=== PATIENT | male | born 1950 | race Caucasian/White ===

== ENCOUNTER → 2018-12-30 | Emergency (ER) | payer MEDICARE ==
[2012-11-05 22:12] VITALS: BP 130/70
--- NOTE | 2018-12-30 19:47 | ERPHSYRPT ---
- History of Present Illness Time Seen by Provider: 12/30/18 19:46 Source: patient, family Allergies/Adverse Reactions: codeine Allergy (Mild, Verified 02/21/13 19:20) Itching hydromorphone HCl [From Dilaudid] Allergy (Mild, Verified 02/21/13 19:20) Nausea Home Medications: Celecoxib [Celebrex] 200 mg PO DAILY 02/21/13 [History] Clopidogrel Bisulfate 75 mg [PLAVIX 75 MG Tablet] 75 mg PO DAILY 02/21/13 [History] Esomeprazole Magnesium [Nexium] 40 mg PO BID 02/21/13 [History] Isosorbide Mononitrate 30 mg [Imdur 30 MG] 30 mg PO DAILY 02/21/13 [History ] Pravastatin Sodium [Pravachol] 20 mg PO DAILY 02/21/13 [History] Tamsulosin HCl 0.4 mg [Flomax 0.4 MG] 0.4 mg PO DAILY 02/21/13 [History] Warfarin Sodium 5 mg [Coumadin 5 MG] 5 mg PO DAILY 02/21/13 [History] Hx Tetanus, Diphtheria Vaccination/Date Given: Yes Hx Influenza Vaccination/Date Given: No Hx Pneumococcal Vaccination/Date Given: No - Past Medical History Pertinent Past Medical History: Yes Neurological History: No Pertinent History ENT History: No Pertinent History Cardiac History: Coronary Artery Disease, Myocardial Infarction ([place]) Respiratory History: No Pertinent History Endocrine Medical History: No Pertinent History Musculoskeletal History: No Pertinent History GI Medical History: No Pertinent History History: No Pertinent History Psycho-Social History: No Pertinent History Male Reproductive Disorders: No Pertinent History Other Medical History: FACTOR 5. BARRETTS ESOPHAGUS. URINARY RETENTION - Past Surgical History Past Surgical History: Yes Cardiac: Cardiac Catheterization, Cardiac Stent Gastrointestinal: Hernia Repair Musculoskeletal: Joint Replacement, Orthopedic Surgery Other Surgical History: L knee replacement 2010 - Social History Smoking Status: Never smoker Exposure to second hand smoke: No Drug Use: none Patient Lives Alone: No - Departure Referrals: DARYL GILES MD [Primary Care Provider] -
== END ==
LOC: ED 19:44
DX: Z53.9 Procedure and treatment not carried out, unspecified reason (principal)
CPT/HCPCS: 99281; G0463

== ENCOUNTER 2021-03-24 19:42 | Emergency (ER) | payer MEDICARE ==
[2012-11-05 22:12] VITALS: BP 130/70
--- NOTE | 2021-03-24 20:15 | ERPHSYRPT ---
- History of Present Illness Time Seen by Provider: 03/24/21 20:10 Source: patient Exam Limitations: no limitations Patient Subjective Stated Complaint: "I'm congested and feel terrible." Triage Nursing Assessment: patient reported that he awoke this morning 03/24/20 with sinus congestion, myalgias, and malaise. he reported that his tested positive for COVID 4 days ago and had similar symptoms. He denied headache, dizziness, chest pain, shortness of breath, N/V/D. He denied that he has been drinking water throghout the day. pupils 3mm bilateral. neck supple without JVD. Symmetrical chest expansion. heart tones S1/S2 RRR without extra sounds. Lungs vesicular with adequate airflow. Abdomen with healed surgical scar from a grafting procedure in the past. Bowel sounds present in all quadrants. Abdomen non-distended, non-surgical, and without peritoneal signs. Peripheral pulses +3 bilateral. Gait steady without complications. Timing/Duration: today Cough Quality/Degree: mild Possible Cause: no prior episodes ( has covid, he has been immunized) Modifying Factors: Improves With: activity Associated Symptoms: fever, cough, muscle aches, nasal congestion Allergies/Adverse Reactions: codeine Allergy (Mild, Verified 03/24/21 19:52) Itching hydromorphone HCl [From Dilaudid] Allergy (Mild, Verified 03/24/21 19:52) Nausea Home Medications: Clopidogrel Bisulfate 75 mg [PLAVIX 75 MG Tablet] 75 mg PO DAILY 02/21/13 [History] Esomeprazole Magnesium [Nexium] 40 mg PO BID 02/21/13 [History] Isosorbide Mononitrate 30 mg [Imdur 30 MG] 30 mg PO DAILY 02/21/13 [History] Pravastatin Sodium [Pravachol] 20 mg PO DAILY 02/21/13 [History] Tamsulosin HCl 0.4 mg [Flomax 0.4 MG] 0.4 mg PO DAILY 02/21/13 [History] Warfarin Sodium 5 mg [Coumadin 5 MG] 5 mg PO DAILY 02/21/13 [History] Hx Tetanus, Diphtheria Vaccination/Date Given: Yes Hx Influenza Vaccination/Date Given: Yes Hx Pneumococcal Vaccination/Date Given: No Travel Risk - International Travel Have you traveled outside of the country in past 3 weeks: No - Coronavirus Screening Are you exhibiting any of the following symptoms?: Yes Symptoms: Cough: New Onset, Headaches/Body Aches/Fatigue - Vaccine Status Have you recieved a Covid-19 vaccination: Yes [employer]: [employer] - Review of Systems Constitutional: Fever, Fatigue, Lethargy, Malaise Eyes: No Symptoms Ears, Nose, & Throat: Nose Congestion Respiratory: Cough Cardiac: No Symptoms Abdominal/Gastrointestinal: Nausea Genitourinary Symptoms: No Symptoms Musculoskeletal: No Symptoms Skin: No Symptoms Neurological: No Symptoms Psychological: No Symptoms Endocrine: No Symptoms Hematologic/Lymphatic: No Symptoms Immunological/Allergic: No Symptoms All Other Systems: Reviewed and Negative - Past Medical History Pertinent Past Medical History: Yes Neurological History: No Pertinent History ENT History: No Pertinent History Cardiac History: Coronary Artery Disease, Myocardial Infarction ([place]) Respiratory History: No Pertinent History Endocrine Medical History: No Pertinent History Musculoskeletal History: No Pertinent History GI Medical History: No Pertinent History History: No Pertinent History Psycho-Social History: No Pertinent History Male Reproductive Disorders: No Pertinent History Other Medical History: FACTOR 5. BARRETTS ESOPHAGUS. URINARY RETENTION - Past Surgical History Past Surgical History: Yes Cardiac: Cardiac Catheterization, Cardiac Stent Gastrointestinal: Hernia Repair Musculoskeletal: Joint Replacement, Orthopedic Surgery Other Surgical History: L knee replacement 2010 - Social History Smoking Status: Never smoker Exposure to second hand smoke: No Drug Use: none Patient Lives Alone: No - Nursing Vital Signs Nursing Vital Signs: Initial Vital Signs Temperature 98.0 F 03/24/21 19:43 Pulse Rate 81 03/24/21 19:43 Respiratory Rate 18 03/24/21 19:43 Blood Pressure 125/68 03/24/21 19:43 O2 Sat by Pulse Oximetry 97 03/24/21 19:43 Pain Scale Pain Intensity 5 - Physical Exam General Appearance: mild distress Eye Exam: PERRL/EOMI Ears, Nose, Throat Exam: normal ENT inspection Neck Exam: normal inspection, non-tender Respiratory Exam: normal breath sounds, chest tenderness Cardiovascular Exam: regular rate/rhythm, normal heart sounds Gastrointestinal/Abdomen Exam: soft, normal bowel sounds Rectal Exam: deferred Back Exam: normal inspection Extremity Exam: normal inspection, normal range of motion Neurologic Exam: alert, oriented x 3, cooperative Skin Exam: normal color, warm, dry SpO2 Interpretation: normal SpO2: 97 O2 Delivery: Room Air - Course Nursing assessment & vital signs reviewed: Yes Ordered Tests: Active Orders 24 hr Category Date Time Status IV Insertion STAT Care 03/24/21 20:20 Completed CBC W DIFF Stat Lab 03/24/21 20:45 Completed CMP Stat Lab 03/24/21 20:45 Completed Medication Summary Discontinued Medications Generic Name Dose Route Start Last Admin Trade Name Jose PRN Reason Stop Dose Admin Lactated Ringer's 1,000 mls @ 999 mls/hr 03/24/21 20:17 03/24/21 21:28 Lactated Ringers IV 03/24/21 21:17 Infused .Q1H1M ONE Infusion Lactated Ringer's Confirm 03/24/21 20:27 Lactated Ringers Administered 03/24/21 20:28 Dose 1,000 mls @ ud IV .STK-MED ONE Ondansetron HCl 4 mg 03/24/21 20:17 03/24/21 20:27 Ondansetron Hcl 4 Mg/2 Ml Vial IV 03/24/21 20:18 4 mg STAT ONE Administration Ondansetron HCl Confirm 03/24/21 20:26 Ondansetron Hcl 4 Mg/2 Ml Vial Administered 03/24/21 20:27 Dose 4 mg .ROUTE .STK-MED ONE Lab/Rad Data: Laboratory Result Diagrams 03/24/21 20:45 03/24/21 20:45 Laboratory Results 03/24/21 03/24/21 Range/Units 20:45 20:45 WBC 11.8 H (4.0-10.5) K/mm3 RBC 3.65 L (4.1-5.6) M/mm3 Hgb 11.0 L (12.5-18.0) gm/dl Hct 34.6 L (42-50) % MCV 94.8 (78-100) fl MCH 30.1 (26-32) pg MCHC 31.8 L (32-36) g/dl RDW 15.5 H (11.5-14.0) % Plt Count 202 (150-450) K/mm3 MPV 9.3 (7.5-11.0) fl Gran % 71.7 H (36.0-66.0) % Eos # (Auto) 0.07 (0-0.5) Absolute Lymphs (auto) 1.71 (1.0-4.6) Absolute Monos (auto) 1.54 H (0.0-1.3) Lymphocytes % 14.5 L (24.0-44.0) % Monocytes % 13.0 H (0.0-12.0) % Eosinophils % 0.6 (0.00-5.0) % Basophils % 0.2 (0.0-0.4) % Absolute Granulocytes 8.47 H (1.4-6.9) Basophils # 0.02 (0-0.4) Sodium 134 L (137-145) mmol/L Potassium 4.0 (3.5-5.1) mmol/L Chloride 98 (98-107) mmol/L Carbon Dioxide 31 H (22-30) mmol/L Anion Gap 8.8 (5-15) MEQ/L BUN 16 (9-20) mg/dL Creatinine 0.84 (0.66-1.25) mg/dL Estimated GFR > 60.0 ML/MIN Glucose 108 H (74-106) mg/dL Calcium 8.2 L (8.4-10.2) mg/dL Total Bilirubin 0.80 (0.2-1.3) mg/dL AST 19 (17-59) U/L ALT 15 (0-50) U/L Alkaline Phosphatase 66 (38-126) U/L Serum Total Protein 6.3 (6.3-8.2) g/dL Albumin 3.5 (3.5-5.0) g/dL Slides for Path Review YES - Progress Progress: improved Air Movement: good Progress Note: 03/25/21 02:09 He likely has COVID, test sent out. Mild volume depletion. Rx zofran. Blood Culture(s) Obtained: No Antibiotics given: No Counseled pt/family regarding: lab results, diagnosis - Departure Departure Disposition: Home Clinical Impression: Nausea, Volume depletion, Viral syndrome Condition: Stable Critical Care Time: No Referrals: YOSEF WILDE [Primary Care Provider] - Follow up/PCP as directed Instructions: Nausea and Vomiting, Adult (DC) Additional Instructions: Your COVID test is pending, you should assume that you have it. Follow CDC guidelines. OTC med as helpful. Recheck as needed. Prescriptions: Ondansetron [Ondansetron Odt ] 4 mg PO Q6H PRN #30 tablet PRN Reason: Nausea
[2021-03-24] MEDS ORDERED: Zofran 4 MG/2 ML VIAL IV ONE (20:17)
[2021-03-24] MEDS ORDERED: Lactated Ringers 1,000 ML IV ONE ×2 (20:17→20:27)
[2021-03-24] MEDS ORDERED: Zofran 4 MG/2 ML VIAL ONE (20:26)
[2021-03-24 20:55] LABS: Absolute Neutrophil Ct (ANC) 8.47 (1.4-6.9); Basophil (Absolute #) 0.02 (0-0.4); Eosinophil % 0.6 % (0.00-5.0); Eosinophil (Absolute #) 0.07 (0-0.5); Hematocrit 34.6 % (42-50); Lymphocyte (Absolute #) 1.71 (1.0-4.6); Lymphocytes % 14.5 % (24.0-44.0); Mean Cell Volume 94.8 fl (78-100); Mean Corpuscular Hemoglobin 30.1 pg (26-32); Mean Corpuscular Hgb Concent. 31.8 g/dl (32-36); Mean Platelet Volume 9.3 fl (7.5-11.0); Monocyte (Absolute #) 1.54 (0.0-1.3); Neutrophil % 71.7 % (36.0-66.0); Platelet Count 202 K/mm3 (150-450); Red Blood Count 3.65 M/mm3 (4.1-5.6); Red Cell Distribution Width 15.5 % (11.5-14.0); White Blood Count 11.8 K/mm3 (4.0-10.5)
[2021-03-24 21:10] LABS: ALBUMIN 3.5 g/dL (3.5-5.0); ALKALINE PHOSPHATASE 66 U/L (38-126); ANION GAP 8.8 MEQ/L (5-15); BLOOD UREA NITROGEN 16 mg/dL (9-20); CHLORIDE 98 mmol/L (98-107); Calcium 8.2 mg/dL (8.4-10.2); Carbon Dioxide 31 mmol/L (22-30); Creatinine 1 0.84 mg/dL (0.66-1.25); EST GLOMERULAR FILTRATION RATE > 60.0 ML/MIN; Glucose 108 mg/dL (74-106); SGOT/AST 19 U/L (17-59); SGPT/ALT 15 U/L (0-50); SODIUM 134 mmol/L (137-145); Total Protein 6.3 g/dL (6.3-8.2)
[2021-03-24 22:47] VITALS: BP 139/76; PULSE 80
[2021-03-24 22:59] LABS: Slide Review 1 YES
[2021-03-25 02:06] VITALS: O2SAT 97
== END 2021-03-24 22:51 | disposition home or self-care (01) ==
LOC: ED 19:42
DX: B34.9 Viral infection, unspecified (principal); R11.0 Nausea; E86.0 Dehydration; R09.81 Nasal congestion; M79.10 Myalgia, unspecified site; R53.81 Other malaise; Z20.822 Contact with and (suspected) exposure to COVID-19; Z79.01 Long term (current) use of anticoagulants; I25.10 Atherosclerotic heart disease of native coronary artery without angina pectoris; D68.51 Activated protein C resistance; Z79.899 Other long term (current) drug therapy
CPT/HCPCS: 36000; 36415; 80053; 85025; 96374; 99284; U0003; J2405

== ENCOUNTER 2021-03-26 11:50 | Observation (INO) | payer MEDICARE ==
[2021-03-26] MEDS ORDERED: Sodium Chloride 0.9% 1000 ML 1,000 ML IV STA (12:25)
[2021-03-26] MEDS ORDERED: Sodium Chloride 0.9% 1000 ML 1,000 ML ONE (12:31)
--- NOTE | 2021-03-26 12:36 | ERPHSYRPT ---
- History of Present Illness Time Seen by Provider: 03/26/21 12:00 Source: patient Exam Limitations: no limitations Patient Subjective Stated Complaint: Chest pain Triage Nursing Assessment: Patient ambulated back to ED and transferred self to bed. Patient A+O X3. Patient's skin pink, warm and dry. Patient complains of chest pain that started yesterday evening. Patient states pain is 8/10. Patient also has fever, cough, SOB, diarrhea, bodyaches, fatigue and headaches. Patient was seen in ED on Saturday and was tested outpatient for covid with pending results. Patient's is COVID Postitive. Lungs clear A/P willam. Physician History: Patient is a 70-year-old white male who presents with a complaint of chest pain which he feels is due to coughing. He has been sick for 2 days with a cough producing a small amount of phlegm he also has had some headache fatigue diarrhea fever chest congestion and shortness of breath. He has a who tested positive for COVID COVID 4 days ago the patient was vaccinated with J&J vaccine in March of last year. Patient was seen 2 nights ago in the yard clinically diagnosed with the flu COVID was done and is pending. Timing/Duration: day(s) (2) Cough Quality/Degree: productive cough Possible Cause: illness exposure ( is positive for COVID) Associated Symptoms: fever, chills, chest pain/soreness, cough, headache, nasal congestion, shortness of breath Allergies/Adverse Reactions: codeine Allergy (Mild, Verified 03/26/21 11:59) Itching hydromorphone HCl [From Dilaudid] Allergy (Mild, Verified 03/26/21 11:59) Nausea Home Medications: Clopidogrel Bisulfate 75 mg [PLAVIX 75 MG Tablet] 75 mg PO DAILY 02/21/13 [History] Esomeprazole Magnesium [Nexium] 40 mg PO BID 02/21/13 [History] Isosorbide Mononitrate 30 mg [Imdur 30 MG] 30 mg PO DAILY 02/21/13 [History] Pravastatin Sodium [Pravachol] 20 mg PO DAILY 02/21/13 [History] Tamsulosin HCl 0.4 mg [Flomax 0.4 MG] 0.4 mg PO DAILY 02/21/13 [History] Warfarin Sodium 5 mg [Coumadin 5 MG] 5 mg PO DAILY 02/21/13 [History] Hx Tetanus, Diphtheria Vaccination/Date Given: Yes Hx Influenza Vaccination/Date Given: Yes Hx Pneumococcal Vaccination/Date Given: No Immunizations Up to Date: Yes Travel Risk - International Travel Have you traveled outside of the country in past 3 weeks: No - Coronavirus Screening Are you exhibiting any of the following symptoms?: Yes Symptoms: Fever, Cough: New Onset, Shortness of Breath, Loss of Taste or Smell Close contact with a COVID-19 positive Pt in past 14-21 Days: Yes - Vaccine Status Have you recieved a Covid-19 vaccination: Yes [employer]: [employer] - Review of Systems Constitutional: Fever, Chills, Fatigue Eyes: No Symptoms Ears, Nose, & Throat: Nose Congestion, Throat Pain Respiratory: Cough, Dyspnea, Dyspnea on Exertion (LOCO) Cardiac: Chest Pain, No Edema, No Syncope Abdominal/Gastrointestinal: Diarrhea, No Abdominal Pain, No Nausea, No Vomiting Genitourinary Symptoms: No Dysuria Musculoskeletal: No Back Pain, No Neck Pain Skin: No Rash Neurological: Headache, No Dizziness, No Focal Weakness, No Sensory Changes Psychological: No Symptoms Endocrine: No Symptoms All Other Systems: Reviewed and Negative - Past Medical History Pertinent Past Medical History: Yes Neurological History: No Pertinent History ENT History: No Pertinent History Cardiac History: Coronary Artery Disease, Myocardial Infarction ([place]) Respiratory History: No Pertinent History Endocrine Medical History: No Pertinent History Musculoskeletal History: No Pertinent History GI Medical History: No Pertinent History History: No Pertinent History Psycho-Social History: No Pertinent History Male Reproductive Disorders: No Pertinent History Other Medical History: FACTOR 5. BARRETTS ESOPHAGUS. URINARY RETENTION - Past Surgical History Past Surgical History: Yes Cardiac: Cardiac Catheterization, Cardiac Stent Gastrointestinal: Hernia Repair Musculoskeletal: Joint Replacement, Orthopedic Surgery Other Surgical History: L knee replacement 2010 - Social History Smoking Status: Never smoker Exposure to second hand smoke: No Drug Use: none Patient Lives Alone: No - Nursing Vital Signs Nursing Vital Signs: Initial Vital Signs Temperature 99.0 F 03/26/21 12:00 Pulse Rate 86 03/26/21 12:00 Respiratory Rate 18 03/26/21 12:00 Blood Pressure 138/68 03/26/21 12:00 O2 Sat by Pulse Oximetry 96 03/26/21 12:00 Pain Scale Pain Intensity 6 - Physical Exam General Appearance: mild distress, alert Eye Exam: PERRL/EOMI, eyes nml inspection Ears, Nose, Throat Exam: normal ENT inspection, TMs normal, pharynx normal, moist mucous membranes Neck Exam: normal inspection, non-tender, supple, full range of motion Respiratory Exam: respiratory distress, crackles/rales Cardiovascular Exam: regular rate/rhythm, normal heart sounds Gastrointestinal/Abdomen Exam: soft, No tenderness Back Exam: normal inspection, No CVA tenderness, No vertebral tenderness Extremity Exam: normal inspection, normal range of motion Neurologic Exam: alert, oriented x 3, cooperative, normal mood/affect, sensation nml, No motor deficits Skin Exam: normal color, warm, dry, No rash Lymphatic Exam: No adenopathy SpO2: 96 - Course Nursing assessment & vital signs reviewed: Yes EKG Interpreted by Me: RATE (86), Sinus Rhythm, NORMAL AXIS, NORMAL INTERVALS, Non-specific ST Changes - Radiology Exams Chest X-ray Interpretation: Interpreted by me, Other (Right upper lobe opacities) Ordered Tests: Active Orders 24 hr Category Date Time Status EKG-ER Only STAT Care 03/26/21 12:25 Active IV Insertion STAT Care 03/26/21 12:25 Active CHEST 1 VIEW (PORTABLE) Stat Exams 03/26/21 12:26 Taken BLOOD CULTURE Stat Lab 03/26/21 12:45 Received CBC W DIFF Stat Lab 03/26/21 12:36 Completed CMP Stat Lab 03/26/21 12:36 Completed D-DIMER QUANTITATIVE Stat Lab 03/26/21 12:36 Completed LIPASE Stat Lab 03/26/21 12:36 Completed Lactic Acid Stat Lab 03/26/21 12:35 Completed MAGNESIUM Stat Lab 03/26/21 12:36 Completed NT PRO BNP Stat Lab 03/26/21 12:36 Completed PROTIME WITH INR Stat Lab 03/26/21 12:36 Completed TROPONIN Q3H Lab 03/26/21 12:36 Completed TROPONIN Q3H Lab 03/26/21 15:30 Ordered TROPONIN Q3H Lab 03/26/21 18:30 Ordered TROPONIN Q3H Lab 03/26/21 21:30 Ordered TROPONIN Q3H Lab 03/27/21 00:30 Ordered UA W/RFX UR CULTURE Stat Lab 03/26/21 12:26 Ordered Medication Summary Discontinued Medications Generic Name Dose Route Start Last Admin Trade Name Freq PRN Reason Stop Dose Admin Sodium Chloride 1,000 mls @ 999 mls/hr 03/26/21 12:25 03/26/21 14:06 Sodium Chloride 0.9% 1000 Ml IV 03/26/21 13:25 Infused .Q1H1M STA Infusion Sodium Chloride Confirm 03/26/21 12:31 Sodium Chloride 0.9% 1000 Ml Administered 03/26/21 12:32 Dose 1,000 mls @ .ROUTE .[facility]-MED ONE Lab/Rad Data: Laboratory Result Diagrams 03/26/21 12:36 03/26/21 12:36 Laboratory Results 03/26/21 03/26/21 03/26/21 Range/Units 12:36 12:36 12:36 WBC (4.0-10.5) K/mm3 RBC (4.1-5.6) M/mm3 Hgb (12.5-18.0) gm/dl Hct (42-50) % MCV (78-100) fl MCH (26-32) pg MCHC (32-36) g/dl RDW (11.5-14.0) % Plt Count (150-450) K/mm3 MPV (7.5-11.0) fl Gran % (36.0-66.0) % Eos # (Auto) (0-0.5) Absolute Lymphs (auto) (1.0-4.6) Absolute Monos (auto) (0.0-1.3) Lymphocytes % (24.0-44.0) % Monocytes % (0.0-12.0) % Eosinophils % (0.00-5.0) % Basophils % (0.0-0.4) % Absolute Granulocytes (1.4-6.9) Basophils # (0-0.4) PT 27.7 H (9.4-12.5) SECONDS INR 2.35 (0.8-3.0) D-Dimer 332 (215-500) ng/mL Sodium 135 L (137-145) mmol/L Potassium 3.7 (3.5-5.1) mmol/L Chloride 101 (98-107) mmol/L Carbon Dioxide 26 (22-30) mmol/L Anion Gap 11.7 (5-15) MEQ/L BUN 19 (9-20) mg/dL Creatinine 0.76 (0.66-1.25) mg/dL Estimated GFR > 60.0 ML/MIN Glucose 167 H (74-106) mg/dL Lactic Acid (0.4-2.0) Calcium 8.7 (8.4-10.2) mg/dL Magnesium 1.7 (1.6-2.3) mg/dL Total Bilirubin 0.70 (0.2-1.3) mg/dL AST 21 (17-59) U/L ALT 17 (0-50) U/L Alkaline Phosphatase 52 (38-126) U/L Troponin I < 0.012 (0.000-0.034) ng/mL NT-Pro-B Natriuret Pep 531 (0-900) pg/mL Serum Total Protein 6.1 L (6.3-8.2) g/dL Albumin 3.3 L (3.5-5.0) g/dL Lipase 19 L (23-300) U/L Influenza Type A Ag (NEGATIVE) Influenza Type B Ag (NEGATIVE) RSV (PCR) (Negative) SARS-CoV-2 (PCR) (NEGATIVE) 03/26/21 03/26/21 03/26/21 Range/Units 12:36 12:35 12:34 WBC 18.0 H (4.0-10.5) K/mm3 RBC 3.58 L (4.1-5.6) M/mm3 Hgb 10.9 L (12.5-18.0) gm/dl Hct 33.8 L (42-50) % MCV 94.4 (78-100) fl MCH 30.4 (26-32) pg MCHC 32.2 (32-36) g/dl RDW 15.5 H (11.5-14.0) % Plt Count 209 (150-450) K/mm3 MPV 9.9 (7.5-11.0) fl Gran % 86.4 H (36.0-66.0) % Eos # (Auto) 0.03 (0-0.5) Absolute Lymphs (auto) 1.17 (1.0-4.6) Absolute Monos (auto) 1.22 (0.0-1.3) Lymphocytes % 6.5 L (24.0-44.0) % Monocytes % 6.8 (0.0-12.0) % Eosinophils % 0.2 (0.00-5.0) % Basophils % 0.1 (0.0-0.4) % Absolute Granulocytes 15.53 H (1.4-6.9) Basophils # 0.01 (0-0.4) PT (9.4-12.5) SECONDS INR (0.8-3.0) D-Dimer (215-500) ng/mL Sodium (137-145) mmol/L Potassium (3.5-5.1) mmol/L Chloride (98-107) mmol/L Carbon Dioxide (22-30) mmol/L Anion Gap (5-15) MEQ/L BUN (9-20) mg/dL Creatinine (0.66-1.25) mg/dL Estimated GFR ML/MIN Glucose (74-106) mg/dL Lactic Acid 2.6 H (0.4-2.0) Calcium (8.4-10.2) mg/dL Magnesium (1.6-2.3) mg/dL Total Bilirubin (0.2-1.3) mg/dL AST (17-59) U/L ALT (0-50) U/L Alkaline Phosphatase (38-126) U/L Troponin I (0.000-0.034) ng/mL NT-Pro-B Natriuret Pep (0-900) pg/mL Serum Total Protein (6.3-8.2) g/dL Albumin (3.5-5.0) g/dL Lipase (23-300) U/L Influenza Type A Ag NEGATIVE (NEGATIVE) Influenza Type B Ag NEGATIVE (NEGATIVE) RSV (PCR) NEGATIVE (Negative) SARS-CoV-2 (PCR) POSITIVE A (NEGATIVE) - Progress Progress: unchanged Air Movement: fair Blood Culture(s) Obtained: Yes Antibiotics given: Yes Will see patient in: hospital (observation) - Departure Departure Disposition: Observation Clinical Impression: COVID-19, Right upper lobe pneumonia Condition: Fair Critical Care Time: No Referrals: YOSEF WILDE [Primary Care Provider] - Follow up/PCP as directed
[2021-03-26 12:57] LABS: Absolute Neutrophil Ct (ANC) 15.53 (1.4-6.9); Basophil (Absolute #) 0.01 (0-0.4); Eosinophil % 0.2 % (0.00-5.0); Eosinophil (Absolute #) 0.03 (0-0.5); Hematocrit 33.8 % (42-50); Hemoglobin 10.9 gm/dl (12.5-18.0); Lymphocyte (Absolute #) 1.17 (1.0-4.6); Lymphocytes % 6.5 % (24.0-44.0); Mean Cell Volume 94.4 fl (78-100); Mean Corpuscular Hemoglobin 30.4 pg (26-32); Mean Corpuscular Hgb Concent. 32.2 g/dl (32-36); Mean Platelet Volume 9.9 fl (7.5-11.0); Monocyte (Absolute #) 1.22 (0.0-1.3); Monocytes % 6.8 % (0.0-12.0); Neutrophil % 86.4 % (36.0-66.0); Platelet Count 209 K/mm3 (150-450); Red Blood Count 3.58 M/mm3 (4.1-5.6); Red Cell Distribution Width 15.5 % (11.5-14.0)
[2021-03-26 13:10] LABS: INR 2.35 (0.8-3.0); PROTIME 27.7 SECONDS (9.4-12.5)
[2021-03-26 13:17] LABS: INFLUENZA A NEGATIVE (NEGATIVE); INFLUENZA B NEGATIVE (NEGATIVE); RESPIRATORY SYNCTIAL VIRUS NEGATIVE (Negative)
[2021-03-26 13:22] LABS: SARS-CoV-2 Xpert Express POSITIVE (NEGATIVE)
[2021-03-26 13:23] LABS: ALBUMIN 3.3 g/dL (3.5-5.0); ALKALINE PHOSPHATASE 52 U/L (38-126); ANION GAP 11.7 MEQ/L (5-15); BLOOD UREA NITROGEN 19 mg/dL (9-20); CHLORIDE 101 mmol/L (98-107); Calcium 8.7 mg/dL (8.4-10.2); Carbon Dioxide 26 mmol/L (22-30); Creatinine 1 0.76 mg/dL (0.66-1.25); EST GLOMERULAR FILTRATION RATE > 60.0 ML/MIN; Glucose 167 mg/dL (74-106); LIPASE 19 U/L (23-300); MAGNESIUM 1.7 mg/dL (1.6-2.3); NT PRO BNP 531 pg/mL (0-900); Potassium 3.7 mmol/L (3.5-5.1); SGOT/AST 21 U/L (17-59); SGPT/ALT 17 U/L (0-50); SODIUM 135 mmol/L (137-145); Total Protein 6.1 g/dL (6.3-8.2)
[2021-03-26] MEDS: Sodium Chloride 0.9% 1000 ML 1,000 ML IV SCH (14:44)
[2021-03-26] MEDS ORDERED: FEVERALL 650 MG PR PRN (15:15)
[2021-03-26] MEDS ORDERED: Ativan 1 MG PO PRN (15:15)
[2021-03-26] MEDS ORDERED: Ativan 2 MG/1 ML VIAL IV PRN (15:15)
[2021-03-26] MEDS ORDERED: TYLENOL EXTRA STRENGTH 500 MG PO PRN (15:15)
[2021-03-26] MEDS ORDERED: Zofran 4 MG/2 ML VIAL IV PRN (15:15)
[2021-03-26] MEDS ORDERED: HYDROCODONE-CHLORPHEN ER SUSP PO PRN (15:15)
[2021-03-26] MEDS ORDERED: DECADRON 10MG INJ. IV SCH (16:00)
[2021-03-26] MEDS ORDERED: OLUMIANT PO SCH (16:00)
[2021-03-26] MEDS ORDERED: REMDESIVIR 200 MG in Sodium Chloride 0.9% 250 ML 250 ML IV ONE (16:00)
[2021-03-26] MEDS ORDERED: ZOFRAN ODT 4 MG PO PRN (16:43)
[2021-03-26] MEDS: MORPHINE SULFATE 4 MG INJ IV PRN ×2 (17:07→23:37)
[2021-03-26] MEDS: ROCEPHIN 1 Gm-D5w 50 ml Bag** 1 G/50 ML IVPB IV SCH (17:11)
[2021-03-26] MEDS: Coumadin 1 MG*** 1 MG, Coumadin 3 MG*** 3 MG PO SCH ×2 (17:11)
[2021-03-26] MEDS ORDERED: MEDICATION INTERVENTION MC SCH ×2 (17:15)
[2021-03-26] MEDS: ZENPEP DR 5,000 UNIT CAPSULE PO SCH (17:28)
[2021-03-26] MEDS ORDERED: Coumadin 5 MG PO SCH ×2 (18:00→22:00)
[2021-03-26 18:35] LABS: Appearance CLEAR (CLEAR); Bilirubin NEGATIVE (NEGATIVE); Blood SMALL Ery/ul (0-5); Glucose NEGATIVE (NEGATIVE); Ketones NEGATIVE (NEGATIVE); Leukocyte Esterase NEGATIVE (NEGATIVE); Nitrite NEGATIVE (NEGATIVE); Protein,Urine Dip NEGATIVE (Negative); Urobilinogen NEGATIVE mg/dL (0-1)
--- NOTE | 2021-03-26 19:21 | XRAY ---
Indication: Cough, short of breath, congestion, and chest pain. Comparison: January 18, 2013. Portable chest remains clear again with a few incidental tiny calcified granulomas. Heart not enlarged again with tortuous descending aorta. Bony thorax intact again with mild osteopenia and degenerative changes. Impression: Continued nonacute chest with chronic features.
[2021-03-26] MEDS: Flomax 0.4 MG PO SCH (21:29)
[2021-03-26] MEDS: PLAVIX 75 MG Tablet PO SCH (21:29)
[2021-03-27 03:04] LABS: Hematocrit 32.3 % (42-50); Mean Cell Volume 95.8 fl (78-100); Mean Corpuscular Hemoglobin 29.7 pg (26-32); Mean Platelet Volume 9.7 fl (7.5-11.0); Platelet Count 193 K/mm3 (150-450); Red Blood Count 3.37 M/mm3 (4.1-5.6); Red Cell Distribution Width 15.9 % (11.5-14.0); White Blood Count 16.7 K/mm3 (4.0-10.5)
[2021-03-27 03:30] LABS: ALBUMIN 3.2 g/dL (3.5-5.0); ALKALINE PHOSPHATASE 61 U/L (38-126); ANION GAP 7.8 MEQ/L (5-15); BLOOD UREA NITROGEN 14 mg/dL (9-20); CHLORIDE 102 mmol/L (98-107); Calcium 8.2 mg/dL (8.4-10.2); Carbon Dioxide 29 mmol/L (22-30); EST GLOMERULAR FILTRATION RATE > 60.0 ML/MIN; Glucose 95 mg/dL (74-106); NT PRO BNP 568 pg/mL (0-900); Potassium 3.9 mmol/L (3.5-5.1); SGOT/AST 19 U/L (17-59); SGPT/ALT 14 U/L (0-50); SODIUM 135 mmol/L (137-145); Total Protein 6.1 g/dL (6.3-8.2)
[2021-03-27] MEDS ORDERED: NON-FORMULARY ITEM (Lipase/Protease/Amylase [Creon Dr 36,000 Unit Capsule] 1 EACH Capsule. PO SCH (07:30)
[2021-03-27] MEDS: ZENPEP DR 5,000 UNIT CAPSULE PO SCH ×3 (07:54→16:50)
[2021-03-27] MEDS: MORPHINE SULFATE 4 MG INJ IV PRN (08:05)
--- NOTE | 2021-03-27 08:38 | XRAY ---
Indication: Cough and short of breath. Covid 19 pneumonia. Comparison: One day earlier. Portable chest now demonstrates subtle right mid peripheral patchy airspace disease and tiny right effusion. Remaining heart and left lung unremarkable again with incidental tiny calcified granulomas and tortuous descending aorta.
[2021-03-27] MEDS: Sodium Chloride 0.9% 1000 ML 1,000 ML IV SCH ×2 (08:53→21:38)
[2021-03-27] MEDS: Protonix 40MG Tablet PO SCH (09:20)
[2021-03-27] MEDS: ECOTRIN 81 MG PO SCH (09:20)
[2021-03-27] MEDS: Reglan 10 MG PO SCH (09:20)
[2021-03-27] MEDS: MAG-OX 400 PO SCH (09:21)
[2021-03-27] MEDS: ROCEPHIN 1 Gm-D5w 50 ml Bag** 1 G/50 ML IVPB IV SCH (09:24)
[2021-03-27] MEDS ORDERED: NON-FORMULARY ITEM (Fludrocortisone Acetate [Fludrocortisone Acetate] 0.1 MG Tablet) PO SCH (10:00)
[2021-03-27] MEDS ORDERED: NON-FORMULARY ITEM (Potassium Gluconate [Potassium] 99 MG Tablet) PO SCH (10:00)
[2021-03-27] MEDS ORDERED: NON-FORMULARY ITEM (Magnesium [Magnesium] 200 MG Tablet) PO SCH (10:00)
[2021-03-27] MEDS ORDERED: NON-FORMULARY ITEM (Metoclopramide Hcl [Metoclopramide Hcl] 5 MG Tablet) PO SCH (10:00)
--- NOTE | 2021-03-27 15:01 | HP ---
CHIEF COMPLAINT: Chest pain. HISTORY OF PRESENT ILLNESS: The patient is a 70-year-old white male whose has COVID and at home. This is the second time she has had COVID. He started feeling real bad chest pain for 24 hours pain 10/18. He has no history of coronary artery disease. He states it is more of a sharpness, worse with inspiration, worse with walking. He has fever, cough, aching all over, diarrhea. Headaches. He was actually seen in the emergency room on Saturday and was tested for COVID and pending results. The patient was vaccinated with Novacem and Novacem Vaccine in March 2020. He has not had a second vaccine apparently. TRAVEL RISK: No international travel. CORONAVIRUS SCREENING: Vaccine status one Lennox and Lennox. MEDICATIONS: Plavix 75 q.d., Nexium 40 b.i.d., Imdur 30 q.d., Pravachol 20 q.d., tamsulosin 0.4 mg q.d., Coumadin 5 mg q.d. ALLERGIES: CODEINE. DILAUDID (ITCHING). PAST MEDICAL HISTORY: Myocardial infarction. Factor V deficiency. He also has Samson's esophagus. PAST SURGICAL HISTORY: Cardiac stent in the past. Hernia repair. Joint replacement of the left knee. REVIEW OF SYSTEMS: CONSTITUTIONAL: Fever, chills. HEENT: Eyes no problems. Stopped up head, sore throat. RESPIRATORY: Shortness of breath, coughing. CVS: Chest aches. He states he has some factor V deficiency which relates to his myocardial infarction several years ago and being treated for coronary artery disease. ABDOMEN: Diarrhea. He has benign tumor of the pancreas which has left him with unresolved pain and weight loss. At one point he was down to like 122 pounds and he is at least 5'9". IU put a pain pump on him. He resisted doing that initially. A morphine-type pump and said that tremendously improved his life. He is also being fed with an NG tube which came out a few days ago which he did not want have put back in at this time. : No problems. NEUROLOGIC: Headaches since the beginning of this virus. PSYCHOLOGICAL: No problems. He is very orientated, not depressed. His is a very level headed, pleasant person. We treated her earlier this year. SOCIAL HISTORY: Nonsmoker. Drug use: None. He lives with his . PHYSICAL EXAMINATION: VITAL SIGNS: Temperature 100F, pulse 90, respirations 20, blood pressure 140/70. O2 saturation on room air is 96%. Pain intensity 6. HEENT: Pupils equal and reactive to light. NECK: Supple without adenopathy. CHEST: Clear. CVS: No murmurs or gallops. ABDOMEN: Soft. No tenderness or organomegaly. EXTREMITIES: Scars over the knees. Normal. PSYCHOLOGIC: The patient is very pleasant, intelligent, excitable person. He give a good history. LAB DATA AND TESTS: Chest x-ray showed possibly some right upper lobe opacities. White count was 18. Electrolytes were normal except for sodium 135. His prothrombin time is elevated appropriately to 27.7. He is on Coumadin. His INR was 2.35. D-dimer 332. BNP normal at 530. Lipase was 19. Influenza negative. Respiratory syncytial virus negative. SARS-CoV-2 positive. Hemoglobin 10.9. Lactic acid 2.6. IMPRESSION: The patient has:1) COVID. 2) Benign pancreatic tumor which is causing weight loss and pain. 3) Coronary artery disease which is stable. 4) Chest pain felt secondary to COVID. PLAN: The patient will be treated with our usual COVID medications. He is already anticoagulated so he will not need to be put on any new anticoagulation, continue with his home medications. PROGNOSIS: I feel his prognosis is good.
[2021-03-27] MEDS ORDERED: Cyclobenzaprine 10 MG PO PRN (15:38)
[2021-03-27] MEDS ORDERED: REMDESIVIR 100 MG in Sodium Chloride 0.9% 100 ML BAG 100 ML IV SCH (16:00)
[2021-03-27] MEDS: Coumadin 1 MG*** 1 MG, Coumadin 3 MG*** 3 MG PO SCH ×2 (16:57)
[2021-03-27] MEDS: Flomax 0.4 MG PO SCH (21:38)
[2021-03-27] MEDS: PLAVIX 75 MG Tablet PO SCH (21:38)
[2021-03-28 04:43] VITALS: O2SAT 94
[2021-03-28 06:26] LABS: Hematocrit 31.3 % (42-50); Mean Cell Volume 95.4 fl (78-100); Mean Corpuscular Hemoglobin 30.5 pg (26-32); Mean Corpuscular Hgb Concent. 31.9 g/dl (32-36); Mean Platelet Volume 9.9 fl (7.5-11.0); Platelet Count 191 K/mm3 (150-450); Red Blood Count 3.28 M/mm3 (4.1-5.6); Red Cell Distribution Width 15.5 % (11.5-14.0); White Blood Count 11.1 K/mm3 (4.0-10.5)
[2021-03-28 06:50] LABS: ALBUMIN 3.1 g/dL (3.5-5.0); ALKALINE PHOSPHATASE 58 U/L (38-126); ANION GAP 7.8 MEQ/L (5-15); BLOOD UREA NITROGEN 12 mg/dL (9-20); CHLORIDE 102 mmol/L (98-107); Carbon Dioxide 26 mmol/L (22-30); Creatinine 1 0.64 mg/dL (0.66-1.25); EST GLOMERULAR FILTRATION RATE > 60.0 ML/MIN; Glucose 95 mg/dL (74-106); Potassium 3.4 mmol/L (3.5-5.1); SGOT/AST 17 U/L (17-59); SGPT/ALT 12 U/L (0-50); SODIUM 133 mmol/L (137-145); Total Protein 5.9 g/dL (6.3-8.2)
[2021-03-28 07:19] VITALS: BP 126/67; PULSE 78
[2021-03-28] MEDS: ZENPEP DR 5,000 UNIT CAPSULE PO SCH (07:53)
--- NOTE | 2021-03-28 08:37 | XRAY ---
Indication: Covid 19 pneumonia. Comparison: One day earlier. Portable chest again demonstrates subtle right mid peripheral patchy airspace disease and a few incidental scattered tiny calcified granulomas. Remaining heart and lungs unremarkable. No new cardiopulmonary abnormalities.
[2021-03-28] MEDS: ROCEPHIN 1 Gm-D5w 50 ml Bag** 1 G/50 ML IVPB IV SCH (09:18)
[2021-03-28] MEDS: Reglan 10 MG PO SCH (09:18)
[2021-03-28] MEDS: MAG-OX 400 PO SCH (09:19)
[2021-03-28] MEDS: Protonix 40MG Tablet PO SCH (09:19)
[2021-03-28] MEDS: ECOTRIN 81 MG PO SCH (09:20)
--- NOTE | 2021-03-28 12:51 | PCM.DS ---
Discharge Summary Date of Admission: 03/26/21 15:00 Admitting Physician: JACOB ARCHIBALD Primary Care Provider: YOSEF WILDE Allergies Allergies codeine Allergy (Mild, Verified 03/26/21 11:59) Itching hydromorphone HCl [From Dilaudid] Allergy (Mild, Verified 03/26/21 11:59) Nausea Hospital Summary - Hospital Course Hospital Course: Chief Complaint Diagnosis Covid/ Pneumonia Allergies Allergy/AdvReac Type Severity Reaction Status Date / Time codeine Allergy Mild Itching Verified 03/26/21 11:59 hydromorphone HCl Allergy Mild Nausea Verified 03/26/21 11:59 [From Dilaudid] Vital Signs (Last 24 hours) Temp Pulse Resp BP Pulse Ox 03/28/21 07:18 98.3 F 78 17 126/67 94 L 03/28/21 05:37 71 12 94 L 03/28/21 04:00 97.7 F 67 12 144/89 94 L 03/28/21 02:00 68 14 03/27/21 23:51 98.6 F 70 14 141/65 95 03/27/21 21:46 75 12 96 03/27/21 19:47 98.6 F 83 17 137/61 95 03/27/21 16:00 98.0 F 85 21 114/52 97 03/27/21 14:00 79 12 94 L Home Medications Medication Instructions Recorded Confirmed Last Taken Type Aspirin EC 81 mg [Ecotrin 81 81 mg PO DAILY 03/26/21 03/26/21 03/25/21 History mg] Fludrocortisone Acetate 0.1 mg PO DAILY 03/26/21 03/26/21 03/25/21 History Lipase/Protease/Amylase [Ondina Monroy 36,000 units PO AC 03/26/21 03/26/21 03/26/21 History 36,000 Unit Capsule] Magnesium 250 mg PO DAILY 03/26/21 03/26/21 03/25/21 History Metoclopramide HCl 5 mg PO DAILY 03/26/21 03/26/21 03/25/21 History PANTOPRAZOLE 40 mg Tablet 40 mg PO QAM 03/26/21 03/26/21 03/25/21 History [Protonix 40MG Tablet] Potassium Gluconate [Potassium] 99 mg PO DAILY 03/26/21 03/26/21 03/25/21 History Cyclobenzaprine HCl 10 mg 10 mg PO TID PRN PRN #30 tablet 03/28/21 Unknown Rx [Cyclobenzaprine 10 MG] Current Medications Discontinued Medications Generic Name Dose Route Start Last Admin Trade Name Freq PRN Reason Stop Dose Admin Acetaminophen 500 - 1,000 mg 03/26/21 15:15 Acetaminophen 500 Mg Tablet PO 04/25/21 15:14 Q4H PRN PRN Temp > 100.4 Orally Acetaminophen 650 mg 03/26/21 15:15 Acetaminophen 650 Mg Supp.Rect SD 04/25/21 15:14 Q4H PRN PRN Temp > 100.4 Orally Lipase/Protease/Amylase 7 each 03/26/21 17:30 03/28/21 07:53 Lipase/Protease/Amylase 1 Each Capsule. PO 04/25/21 17:29 7 each AC ALEXEY Administration Aspirin 81 mg 03/27/21 10:00 03/28/21 09:20 Aspirin 81 Mg Tablet.Ec PO 04/26/21 09:59 81 mg DAILY ALEXEY Administration Chlorphenir/Hydrocodone Polistirex 5 ml 03/26/21 15:15 03/27/21 00:50 Hydrocodone/Chlorphen P-Stirex 1 Ml Jessenia.Er.12h PO 04/25/21 15:14 5 ml [id number] PRN Administration COUGH Clopidogrel Bisulfate 75 mg 03/26/21 22:00 03/27/21 21:38 Clopidogrel Bisulfate 75 Mg Tablet PO 04/25/21 21:59 75 mg HS ALEXEY Administration Cyclobenzaprine HCl 10 mg 03/27/21 15:38 03/27/21 16:51 Cyclobenzaprine Hcl 10 Mg Tablet PO 04/26/21 15:37 10 mg TID PRN PRN Administration MUSCLE SPASMS Sodium Chloride 1,000 mls @ 999 mls/hr 03/26/21 12:25 03/26/21 14:06 Sodium Chloride 0.9% 1000 Ml IV 03/26/21 13:25 Infused .Q1H1M STA Infusion Sodium Chloride Confirm 03/26/21 12:31 Sodium Chloride 0.9% 1000 Ml Administered 03/26/21 12:32 Dose 1,000 mls @ ud .ROUTE .STK-MED ONE Sodium Chloride 1,000 mls @ 60 mls/hr 03/26/21 14:15 03/27/21 21:38 Sodium Chloride 0.9% 1000 Ml IV 04/25/21 14:14 100 mls/hr .[id number] ALEXEY Administration Remdesivir 100 mg/ Sodium 100 mls @ 100 mls/hr 03/27/21 16:00 Chloride IV 03/30/21 16:59 Q24H ALEXEY Remdesivir 200 mg/ Sodium 250 mls @ 125 mls/hr 03/26/21 16:00 03/26/21 17:07 Chloride IV 03/26/21 17:59 125 mls/hr ONCE ONE Administration Ceftriaxone Sodium/Dextrose 1 g in 50 mls @ 100 mls/hr 03/26/21 18:00 03/28/21 09:18 Rocephin 1 Gm-D5w 50 Ml Bag IV 03/29/21 17:59 100 mls/hr Q24H10 ALEXEY Administration Lorazepam 1 mg 03/26/21 15:15 Lorazepam 2 Mg/1 Ml 2 Mg Vial IV 04/25/21 15:14 Q4H PRN PRN Anxiety/Sleep Lorazepam 1 mg 03/26/21 15:15 03/26/21 21:29 Lorazepam 1 Mg Tablet PO 04/25/21 15:14 1 mg Q4H PRN PRN Administration Anxiety/Sleep Magnesium Oxide 200 mg 03/27/21 10:00 03/28/21 09:19 Magnesium Oxide 400 Mg Tablet PO 04/26/21 09:59 200 mg DAILY ALEXEY Administration Metoclopramide HCl 5 mg 03/27/21 10:00 03/28/21 09:18 Metoclopramide Hcl 10 Mg Tablet PO 04/26/21 09:59 5 mg DAILY ALEXEY Administration Miscellaneous Information 1 each 03/26/21 17:15 Medication Intervention 1 Each Each 04/25/21 17:14 .RN TO CHECK WITH PT ALEXEY Miscellaneous Information 1 each 03/26/21 17:15 Medication Intervention 1 Each Each 04/25/21 17:14 .RN TO CHECK WITH PT ALEXEY Morphine Sulfate 4 mg 03/26/21 16:40 03/27/21 08:05 Morphine Sulfate 4 Mg/Ml Injection IV 03/31/21 16:39 4 mg Q3H PRN PRN Administration BAD PAIN Ondansetron HCl 4 mg 03/26/21 15:15 Ondansetron Hcl 4 Mg/2 Ml Vial IV 04/25/21 15:14 Q6H PRN PRN NAUSEA/VOMITING Ondansetron HCl 4 mg 03/26/21 16:43 Zofran 4 Mg/Udtablet Orally Disintegrating PO 04/25/21 16:42 Q6H PRN PRN NAUSEA Pantoprazole Sodium 40 mg 03/27/21 10:00 03/28/21 09:19 Protonix (Pantoprazole) 40 Mg Tablet PO 04/26/21 09:59 40 mg QAM ALEXEY Administration Tamsulosin HCl 0.4 mg 03/26/21 22:00 03/27/21 21:38 Tamsulosin Hcl 0.4 Mg Cap PO 04/25/21 21:59 0.4 mg HS ALEXEY Administration Warfarin Sodium 1 mg/ Warfarin 4 mg 03/26/21 18:00 03/27/21 16:57 Sodium 3 mg PO 04/25/21 17:59 4 mg DAILY AT 1800 ALEXEY Administration Intake & Output (Last 24 hours) 03/26/21 03/27/21 03/28/21 03/29/21 11:59 11:59 11:59 11:59 Intake Total 2498 3045 Output Total 1600 3400 Balance 898 -355 Weight 67.5 kg 67.6 kg Microbiology Results (Last 24 hours) 03/26/21 12:45 Blood Blood Culture Gram Stain - Pending 03/26/21 12:45 Blood Blood Culture - Preliminary NO GROWTH TO DATE 03/26/21 12:41 Blood Blood Culture Gram Stain - Pending 03/26/21 12:41 Blood Blood Culture - Preliminary NO GROWTH TO DATE Laboratory Results (Last 24 hours) 03/28/21 03/28/21 03/28/21 05:40 05:40 05:40 WBC 11.1 H RBC 3.28 L Hgb 10.0 L Hct 31.3 L MCV 95.4 MCH 30.5 MCHC 31.9 L RDW 15.5 H Plt Count 191 MPV 9.9 D-Dimer 352 Sodium 133 L Potassium 3.4 L Chloride 102 Carbon Dioxide 26 Anion Gap 7.8 BUN 12 Creatinine 0.64 L Estimated GFR > 60.0 Glucose 95 Calcium 8.0 L Total Bilirubin 0.80 AST 17 ALT 12 Alkaline Phosphatase 58 Serum Total Protein 5.9 L Albumin 3.1 L Orders (Last 24 hours) Category Date Time Status Discharge Routine Discharge 03/28/21 Ordered CHEST 1 VIEW (PORTABLE) Routine Exams 03/28/21 06:00 Completed CBC DAILY Lab 03/28/21 05:40 Completed CMP DAILY Lab 03/28/21 05:40 Completed D-DIMER QUANTITATIVE DAILY Lab 03/28/21 05:40 Completed Cyclobenzaprine HCl 10 mg [Cyclobenzaprine 10 MG] Med 03/27/21 15:38 Discontinued 10 mg PO TID PRN PRN Remdesivir 100 mg Med 03/27/21 16:00 Discontinued NaCl 0.9% 100Ml [Sodium Chloride 0.9% 100 ML BAG] 100 ml IV Q24H Patient Care Notes (Last 24 hours) 03/28/21 10:54 Nursing Note by Nichelle Luna I faxed patients paper work to [facility] [phone] and called [phone] to let them aware he discharged home. Initialized on 03/28/21 10:54 - END OF NOTE 03/28/21 09:54 Case Management Note by Ana Rosa Phipps PATIENT PLAN TO D/C TODAY. [facility] SET UP AND ACCEPTED YESTERDAY, PRIMARY RN AWARE. NO OTHER NEEDS AT THIS TIME. Initialized on 03/28/21 09:54 - END OF NOTE - Vitals & Intake/Output Vital Signs: Vital Signs Temperature 98.3 F 03/28/21 07:18 Pulse Rate 78 03/28/21 07:18 Respiratory Rate 17 03/28/21 07:18 Blood Pressure 126/67 03/28/21 07:18 O2 Sat by Pulse Oximetry 94 L 03/28/21 07:18 Intake & Output: Intake & Output 03/26/21 03/27/21 03/28/21 03/29/21 11:59 11:59 11:59 11:59 Intake Total 2498 3045 Output Total 1600 3400 Balance 898 -355 Weight 67.5 kg 67.6 kg - Lab Result Diagrams: 03/28/21 05:40 03/28/21 05:40 Lab Results-Last 24 Hrs: Lab Results-Last 24 Hours 03/28/21 03/28/21 03/28/21 Range/Units 05:40 05:40 05:40 WBC 11.1 H (4.0-10.5) K/mm3 RBC 3.28 L (4.1-5.6) M/mm3 Hgb 10.0 L (12.5-18.0) gm/dl Hct 31.3 L (42-50) % MCV 95.4 (78-100) fl MCH 30.5 (26-32) pg MCHC 31.9 L (32-36) g/dl RDW 15.5 H (11.5-14.0) % Plt Count 191 (150-450) K/mm3 MPV 9.9 (7.5-11.0) fl D-Dimer 352 (215-500) ng/mL Sodium 133 L (137-145) mmol/L Potassium 3.4 L (3.5-5.1) mmol/L Chloride 102 (98-107) mmol/L Carbon Dioxide 26 (22-30) mmol/L Anion Gap 7.8 (5-15) MEQ/L BUN 12 (9-20) mg/dL Creatinine 0.64 L (0.66-1.25) mg/dL Estimated GFR > 60.0 ML/MIN Glucose 95 (74-106) mg/dL Calcium 8.0 L (8.4-10.2) mg/dL Total Bilirubin 0.80 (0.2-1.3) mg/dL AST 17 (17-59) U/L ALT 12 (0-50) U/L Alkaline Phosphatase 58 (38-126) U/L Serum Total Protein 5.9 L (6.3-8.2) g/dL Albumin 3.1 L (3.5-5.0) g/dL Micro Results-Entire Visit: Microbiology 03/26/21 12:45 Blood Culture - Preliminary Blood NO GROWTH TO DATE 03/26/21 12:41 Blood Culture - Preliminary Blood NO GROWTH TO DATE - Radiology Exams Ordered Rad Exams-Entire Visit: Radiology Procedures Category Date Time Status CHEST 1 VIEW (PORTABLE) Routine Exams 03/27/21 Completed CHEST 1 VIEW (PORTABLE) Routine Exams 03/28/21 06:00 Completed CHEST 1 VIEW (PORTABLE) Stat Exams 03/26/21 12:26 Completed - Procedures and Test Procedures and Tests throughout Hospitalization: Therapy Orders & Screens 03/26/21 14:14 Respiratory Therapy Consult ROUTINE Comment: Reason For Exam: 03/27/21 09:08 EKG ROUTINE Comment: Diagnosis: Covid/ Pneumonia Discharge Exam General Appearance: no apparent distress, alert Neurologic Exam: alert, oriented x 3, cooperative, normal mood/affect, nml cerebellar function, sensation nml, No motor deficits Eye Exam: PERRL, EOMI, eyes nml inspection Ears, Nose, Throat Exam: normal ENT inspection, pharynx normal, moist mucous membranes Neck Exam: normal inspection, non-tender, supple, full range of motion Respiratory Exam: normal breath sounds, lungs clear, No respiratory distress Cardiovascular Exam: regular rate/rhythm, normal heart sounds Gastrointestinal/Abdomen Exam: soft, No tenderness, No mass Male Genitalia Exam: deferred Rectal Exam: deferred Back Exam: normal inspection, normal range of motion, No CVA tenderness, No vertebral tenderness Extremity Exam: normal inspection, normal range of motion Skin Exam: normal color, warm, dry Final Diagnosis/Problem List - Final Discharge Diagnosis/Problem (1) COVID-19 Status: Resolved Code(s): U07.1 - COVID-19 (2) Right upper lobe pneumonia Status: Resolved Code(s): J18.9 - PNEUMONIA, UNSPECIFIED ORGANISM (3) Viral syndrome Status: Resolved - Discharge Discharge Date: 03/28/21 Disposition: HOME HEALTH SERVICE Condition: Stable Prescriptions: New Cyclobenzaprine HCl 10 mg [Cyclobenzaprine 10 MG] 10 mg PO TID PRN PRN #30 tablet PRN Reason: Muscle Spasms Continue Tamsulosin HCl 0.4 mg [Flomax 0.4 MG] 0.4 mg PO HS Warfarin Sodium 5 mg [Coumadin 5 MG] 4 mg PO HS Clopidogrel Bisulfate 75 mg [PLAVIX 75 MG Tablet] 75 mg PO HS Ondansetron [Ondansetron Odt ] 4 mg PO Q6H PRN #30 tablet PRN Reason: Nausea Aspirin EC 81 mg [Ecotrin 81 mg] 81 mg PO DAILY PANTOPRAZOLE 40 mg Tablet [Protonix 40MG Tablet] 40 mg PO QAM Potassium Gluconate [Potassium] 99 mg PO DAILY Metoclopramide HCl 5 mg PO DAILY Magnesium 250 mg PO DAILY Lipase/Protease/Amylase [Ondina Monroy 36,000 Unit Capsule] 36,000 units PO AC Fludrocortisone Acetate 0.1 mg PO DAILY Instructions: Coronavirus Disease 2019 (COVID-19) (DC) Additional Instructions: [facility] HAS ACCEPTED PATIENT FOR SERVICES FOLLOWING D/C. PLEASE FAX ALL D/C PAPERWORK TO [phone] [facility] HAS ACCEPTED YOU FOR CARE AFTER DISCHARGE. THEY WILL CALL YOU TO SET UP YOUR FIRST VISIT, IF ANYTHING IS NEEDED, YOU CAN CALL THEM AT [phone] Follow up with: YOSEF WILDE [Primary Care Provider] - 04/06/21 9:15 am Forms: Work/School Release Form
== END 2021-03-28 10:50 | disposition home health service (06) ==
LOC: ED 11:50 → MED SURG 15:00
PROVIDERS: ADMIT Family Medicine; ATTEND Family Medicine
DX: U07.1 COVID-19 (principal); J18.9 Pneumonia, unspecified organism; I25.10 Atherosclerotic heart disease of native coronary artery without angina pectoris; D13.6 Benign neoplasm of pancreas; I25.2 Old myocardial infarction; Z79.01 Long term (current) use of anticoagulants; Z79.899 Other long term (current) drug therapy
CPT/HCPCS: 0241U; 36415; 71045; 80053; 81001; 83605; 83690; 83735; 83880; 84484; 85025; 85027; 85379; 85610; 87040; 93005; 93268; 94762; 96360; 99285; G0378; J0248; J0696; J2270; A9270-GY

== ENCOUNTER 2021-07-09 22:04 | Emergency (ER) | payer MEDICARE ==
[2021-07-09 22:27] VITALS: O2SAT 100
[2021-07-09 22:46] LABS: Absolute Neutrophil Ct (ANC) 4.12 (1.4-6.9); Basophil (Absolute #) 0.02 (0-0.4); Eosinophil % 1.6 % (0.00-5.0); Eosinophil (Absolute #) 0.12 (0-0.5); Hematocrit 33.4 % (42-50); Hemoglobin 10.5 gm/dl (12.5-18.0); Lymphocyte (Absolute #) 1.94 (1.0-4.6); Lymphocytes % 25.5 % (24.0-44.0); Mean Cell Volume 94.1 fl (78-100); Mean Corpuscular Hemoglobin 29.6 pg (26-32); Mean Corpuscular Hgb Concent. 31.4 g/dl (32-36); Mean Platelet Volume 9.9 fl (7.5-11.0); Monocyte (Absolute #) 1.41 (0.0-1.3); Monocytes % 18.5 % (0.0-12.0); Neutrophil % 54.1 % (36.0-66.0); Platelet Count 187 K/mm3 (150-450); Red Blood Count 3.55 M/mm3 (4.1-5.6); Red Cell Distribution Width 15.6 % (11.5-14.0); White Blood Count 7.6 K/mm3 (4.0-10.5)
[2021-07-09 23:04] LABS: ALBUMIN 3.9 g/dL (3.5-5.0); ALKALINE PHOSPHATASE 54 U/L (38-126); AMYLASE 68 U/L (30-110); ANION GAP 12.1 MEQ/L (5-15); BLOOD UREA NITROGEN 20 mg/dL (9-20); CHLORIDE 104 mmol/L (98-107); Calcium 8.7 mg/dL (8.4-10.2); Carbon Dioxide 29 mmol/L (22-30); Creatinine 1 0.81 mg/dL (0.66-1.25); EST GLOMERULAR FILTRATION RATE > 60.0 ML/MIN; LIPASE 82 U/L (23-300); Potassium 3.8 mmol/L (3.5-5.1); SGOT/AST 20 U/L (17-59); SGPT/ALT 14 U/L (0-50); SODIUM 141 mmol/L (137-145); Total Protein 6.7 g/dL (6.3-8.2)
[2021-07-09 23:13] LABS: Glucose 41 mg/dL (74-106)
[2021-07-09 23:27] LABS: INR 1.88 (0.8-3.0); PROTIME 22.2 SECONDS (9.4-12.5)
[2021-07-09 23:30] LABS: PTT 34.8 SECONDS (25.1-36.5)
--- NOTE | 2021-07-09 23:31 | ERPHSYRPT ---
- History of Present Illness Source: patient, EMS Exam Limitations: no limitations Patient Subjective Stated Complaint: ems states that pt was found sitting up in his recliner unresponsive. was unresponsive and diaphoretic when ems arrived with an accu check of 40. pt responsive after d10 given per ems. Triage Nursing Assessment: pt alert and oriented, answers questions approp. pt arrive per ambulance and transfers to stretcher per self. respirations nonlabored. skin warm, slightly clammy. pupils equal and recative. bilat upper and lower ext strength equal and wnl. Physician History: 70 yo wm w mental status changes at home tonight. EMS arrived and glucose was in low 40's so 250ml of D10 given w good response. Pt became more awake and alert wo focal weakness. He arrived to ER alert and oriented x3 wo focal weakness or complaints. Glucose 91 on Accucheck upon ER arrival. Pt is not a diabetic and takes no hypoglycemics. is a diabetic who uses insulin only. /Pt state that he only took his normal meds. Pt has a pancreatic tumor, but they can not tell if it is an insulinoma. states that pt ate cheesecake 1-2 hours before hypoglycemic episode. Timing/Duration: today Severity: moderate Modifying Factors: Improves With: nothing Associated Symptoms: No nausea, No vomiting, No abdominal pain, No shortness of breath, No heartburn, No diaphoresis, No cough, No chills, No chest pain, No fever, No headaches, No loss of appetite, No malaise, No rash, No syncope, No seizure, No weakness Allergies/Adverse Reactions: codeine Allergy (Mild, Verified 07/09/21 22:27) Itching hydromorphone HCl [From Dilaudid] Allergy (Mild, Verified 07/09/21 22:27) Nausea Home Medications: Clopidogrel Bisulfate 75 mg [PLAVIX 75 MG Tablet] 75 mg PO HS 02/21/13 [History] Tamsulosin HCl 0.4 mg [Flomax 0.4 MG] 0.4 mg PO HS 02/21/13 [History] Warfarin Sodium 5 mg [Jantoven] 4 mg PO HS 02/21/13 [History] Fludrocortisone Acetate 0.5 mg PO DAILY 03/26/21 [History] Lipase/Protease/Amylase [Ondina Monroy 36,000 Unit Capsule] 36,000 units PO AC 03/26/21 [History] Metoclopramide HCl 5 mg PO DAILY 03/26/21 [History] PANTOPRAZOLE 40 mg Tablet [Protonix 40MG Tablet] 40 mg PO QAM 03/26/21 [History] Isosorbide Mononitrate 30 mg [Imdur 30 MG] 30 mg PO DAILY 07/09/21 [Hist ory] Prednisone 5 mg [Deltasone 5 mg] 5 mg PO DAILY 07/09/21 [History] Hx Tetanus, Diphtheria Vaccination/Date Given: No (unsure) Hx Influenza Vaccination/Date Given: No Hx Pneumococcal Vaccination/Date Given: No Immunizations Up to Date: No Travel Risk - International Travel Have you traveled outside of the country in past 3 weeks: No - Coronavirus Screening Are you exhibiting any of the following symptoms?: No - Vaccine Status Have you recieved a Covid-19 vaccination: Yes [employer]: [employer] - Review of Systems Constitutional: No Symptoms Eyes: No Symptoms Ears, Nose, & Throat: No Symptoms Respiratory: No Symptoms Cardiac: No Symptoms Abdominal/Gastrointestinal: No Symptoms Genitourinary Symptoms: No Symptoms Musculoskeletal: No Symptoms Skin: No Symptoms Neurological: No Symptoms Psychological: No Symptoms Endocrine: No Symptoms Hematologic/Lymphatic: No Symptoms Immunological/Allergic: No Symptoms - Past Medical History Pertinent Past Medical History: Yes Neurological History: No Pertinent History ENT History: Cataracts Cardiac History: Coronary Artery Disease, Myocardial Infarction (ND) Respiratory History: No Pertinent History Endocrine Medical History: No Pertinent History Musculoskeletal History: No Pertinent History GI Medical History: No Pertinent History History: No Pertinent History Psycho-Social History: No Pertinent History Male Reproductive Disorders: No Pertinent History Other Medical History: chronic pancreatitis, pancreatic tumor. FACTOR 5. BARRETTS ESOPHAGUS. URINARY RETENTION - Past Surgical History Past Surgical History: Yes Neuro Surgical History: No Pertinent History Cardiac: Cardiac Catheterization, Cardiac Stent Gastrointestinal: Hernia Repair Musculoskeletal: Joint Replacement, Orthopedic Surgery Other Surgical History: L knee replacement 2010. Noah precedure. Pain pump placement in pancreas. L hand graft from abd tissue - Social History Smoking Status: Never smoker Exposure to second hand smoke: No Drug Use: none Patient Lives Alone: No Significant Family History: no pertinent family hx - Nursing Vital Signs Nursing Vital Signs: Initial Vital Signs Pulse Rate 50 L 07/09/21 22:07 Respiratory Rate 16 07/09/21 22:07 Blood Pressure 148/96 07/09/21 22:07 O2 Sat by Pulse Oximetry 100 07/09/21 22:07 Pain Scale Pain Intensity 0 Bradycardic/Hypertensive - Physical Exam General Appearance: no apparent distress Eye Exam: PERRL/EOMI, eyes nml inspection Ears, Nose, Throat Exam: normal ENT inspection, TMs normal, pharynx normal, moist mucous membranes Neck Exam: normal inspection, non-tender, supple, full range of motion, No meningismus, No mass, No Brudzinski, No Kernig's, No carotid bruit Respiratory Exam: normal breath sounds, lungs clear, airway intact Cardiovascular Exam: regular rate/rhythm, normal heart sounds, normal peripheral pulses, capillary refill <2 sec, No murmur Gastrointestinal/Abdomen Exam: soft, normal bowel sounds, No tenderness Extremity Exam: normal inspection, normal range of motion Neurologic Exam: alert, oriented x 3, cooperative, 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 as tested, normal mood/affect, nml cerebellar function, nml station & gait, sensation nml, No motor deficits, No sensory deficit Skin Exam: normal color, warm, dry Lymphatic Exam: No adenopathy SpO2 Interpretation: normal SpO2: 100 O2 Delivery: Room Air - Course Nursing assessment & vital signs reviewed: Yes EKG Interpreted by Me: RATE (Sinus edmond/R48/Prolonged QT/Flipped Twaves inferior leads/NO acute ST segment changes) - CT Exams Head CT Interpretation: Tele-radiologist Report (NAD) Abdomen/Pelvis CT Interpretation: Tele-radiologist Report (nothing acute/No pancreatic tumor noted/Fecal retention) Ordered Tests: Active Orders 24 hr Category Date Time Status ABDOMEN AND PELVIS W CONTRAST [CT] Stat Exams 07/10/21 00:04 Taken HEAD WITHOUT CONTRAST [CT] Stat Exams 07/09/21 22:32 Taken AMYLASE Stat Lab 07/09/21 22:42 Completed CBC W DIFF Stat Lab 07/09/21 22:42 Completed CMP Stat Lab 07/09/21 22:42 Completed LIPASE Stat Lab 07/09/21 22:42 Completed POCT GLUCOSE Stat Lab 07/09/21 23:16 Completed POCT GLUCOSE Stat Lab 07/10/21 00:01 Completed POCT GLUCOSE Stat Lab 07/10/21 01:07 Completed PROTIME WITH INR Stat Lab 07/09/21 22:50 Completed PTT Stat Lab 07/09/21 22:50 Completed TROPONIN Q3H Lab 07/09/21 22:42 Completed TROPONIN Q3H Lab 07/10/21 01:30 Ordered TROPONIN Q3H Lab 07/10/21 04:30 Ordered TROPONIN Q3H Lab 07/10/21 07:30 Ordered TROPONIN Q3H Lab 07/10/21 10:30 Ordered UA W/RFX CULTURE Stat Lab 07/09/21 23:29 Completed Lab/Rad Data: Laboratory Result Diagrams 07/09/21 22:42 07/09/21 22:42 Laboratory Results 07/10/21 07/10/21 07/09/21 Range/Units 01:07 00:01 23:29 WBC (4.0-10.5) K/mm3 RBC (4.1-5.6) M/mm3 Hgb (12.5-18.0) gm/dl Hct (42-50) % MCV (78-100) fl MCH (26-32) pg MCHC (32-36) g/dl RDW (11.5-14.0) % Plt Count (150-450) K/mm3 MPV (7.5-11.0) fl Gran % (36.0-66.0) % Eos # (Auto) (0-0.5) Absolute Lymphs (auto) (1.0-4.6) Absolute Monos (auto) (0.0-1.3) Lymphocytes % (24.0-44.0) % Monocytes % (0.0-12.0) % Eosinophils % (0.00-5.0) % Basophils % (0.0-0.4) % Absolute Granulocytes (1.4-6.9) Basophils # (0-0.4) PT (9.4-12.5) SECONDS INR (0.8-3.0) APTT (25.1-36.5) SECONDS Sodium (137-145) mmol/L Potassium (3.5-5.1) mmol/L Chloride (98-107) mmol/L Carbon Dioxide (22-30) mmol/L Anion Gap (5-15) MEQ/L BUN (9-20) mg/dL Creatinine (0.66-1.25) mg/dL Estimated GFR ML/MIN Glucose (74-106) mg/dL POC Glucometer 123 H 121 H (74 to 106) mg/dL Calcium (8.4-10.2) mg/dL Total Bilirubin (0.2-1.3) mg/dL AST (17-59) U/L ALT (0-50) U/L Alkaline Phosphatase (38-126) U/L Troponin I (0.000-0.034) ng/mL Serum Total Protein (6.3-8.2) g/dL Albumin (3.5-5.0) g/dL Amylase (30-110) U/L Lipase (23-300) U/L Urinalys Dipstick Clnc MAIN LAB Urine Color YELLOW (YELLOW) Urine Appearance CLEAR (CLEAR) Urine pH 7.0 (5-6) Ur Specific Parks 1.020 (1.005-1.025) POC Urine Protein Conf NEGATIVE (Negative) Urine Ketones NEGATIVE (NEGATIVE) Urine Nitrite NEGATIVE (NEGATIVE) Urine Bilirubin NEGATIVE (NEGATIVE) Urine Urobilinogen 0.2 (0-1) mg/dL Urine Leukocytes NEGATIVE (NEGATIVE) Urine WBC (Auto) 0-2 (0-5) /HPF Urine RBC (Auto) 3-5 (0-2) /HPF U Epithel Cells (Auto) NONE (FEW) /HPF Urine Bacteria (Auto) NONE SEEN (NEGATIVE) /HPF Urine RBC SMALL (0-5) Sancho/ul Ur Culture Indicated? NO Urine Glucose NEGATIVE (NEGATIVE) mg/dL 07/09/21 07/09/21 07/09/21 Range/Units 23:16 22:50 22:42 WBC (4.0-10.5) K/mm3 RBC (4.1-5.6) M/mm3 Hgb (12.5-18.0) gm/dl Hct (42-50) % MCV (78-100) fl MCH (26-32) pg MCHC (32-36) g/dl RDW (11.5-14.0) % Plt Count (150-450) K/mm3 MPV (7.5-11.0) fl Gran % (36.0-66.0) % Eos # (Auto) (0-0.5) Absolute Lymphs (auto) (1.0-4.6) Absolute Monos (auto) (0.0-1.3) Lymphocytes % (24.0-44.0) % Monocytes % (0.0-12.0) % Eosinophils % (0.00-5.0) % Basophils % (0.0-0.4) % Absolute Granulocytes (1.4-6.9) Basophils # (0-0.4) PT 22.2 H (9.4-12.5) SECONDS INR 1.88 (0.8-3.0) APTT 34.8 (25.1-36.5) SECONDS Sodium (137-145) mmol/L Potassium (3.5-5.1) mmol/L Chloride (98-107) mmol/L Carbon Dioxide (22-30) mmol/L Anion Gap (5-15) MEQ/L BUN (9-20) mg/dL Creatinine (0.66-1.25) mg/dL Estimated GFR ML/MIN Glucose (74-106) mg/dL POC Glucometer 94 (74 to 106) mg/dL Calcium (8.4-10.2) mg/dL Total Bilirubin (0.2-1.3) mg/dL AST (17-59) U/L ALT (0-50) U/L Alkaline Phosphatase (38-126) U/L Troponin I < 0.012 (0.000-0.034) ng/mL Serum Total Protein (6.3-8.2) g/dL Albumin (3.5-5.0) g/dL Amylase (30-110) U/L Lipase (23-300) U/L Urinalys Dipstick Clnc Urine Color (YELLOW) Urine Appearance (CLEAR) Urine pH (5-6) Ur Specific Parks (1.005-1.025) POC Urine Protein Conf (Negative) Urine Ketones (NEGATIVE) Urine Nitrite (NEGATIVE) Urine Bilirubin (NEGATIVE) Urine Urobilinogen (0-1) mg/dL Urine Leukocytes (NEGATIVE) Urine WBC (Auto) (0-5) /HPF Urine RBC (Auto) (0-2) /HPF U Epithel Cells (Auto) (FEW) /HPF Urine Bacteria (Auto) (NEGATIVE) /HPF Urine RBC (0-5) Sancho/ul Ur Culture Indicated? Urine Glucose (NEGATIVE) mg/dL 07/09/21 07/09/21 Range/Units 22:42 22:42 WBC 7.6 (4.0-10.5) K/mm3 RBC 3.55 L (4.1-5.6) M/mm3 Hgb 10.5 L (12.5-18.0) gm/dl Hct 33.4 L (42-50) % MCV 94.1 (78-100) fl MCH 29.6 (26-32) pg MCHC 31.4 L (32-36) g/dl RDW 15.6 H (11.5-14.0) % Plt Count 187 (150-450) K/mm3 MPV 9.9 (7.5-11.0) fl Gran % 54.1 (36.0-66.0) % Eos # (Auto) 0.12 (0-0.5) Absolute Lymphs (auto) 1.94 (1.0-4.6) Absolute Monos (auto) 1.41 H (0.0-1.3) Lymphocytes % 25.5 (24.0-44.0) % Monocytes % 18.5 H (0.0-12.0) % Eosinophils % 1.6 (0.00-5.0) % Basophils % 0.3 (0.0-0.4) % Absolute Granulocytes 4.12 (1.4-6.9) Basophils # 0.02 (0-0.4) PT (9.4-12.5) SECONDS INR (0.8-3.0) APTT (25.1-36.5) SECONDS Sodium 141 (137-145) mmol/L Potassium 3.8 (3.5-5.1) mmol/L Chloride 104 (98-107) mmol/L Carbon Dioxide 29 (22-30) mmol/L Anion Gap 12.1 (5-15) MEQ/L BUN 20 (9-20) mg/dL Creatinine 0.81 (0.66-1.25) mg/dL Estimated GFR > 60.0 ML/MIN Glucose 41 L* (74-106) mg/dL POC Glucometer (74 to 106) mg/dL Calcium 8.7 (8.4-10.2) mg/dL Total Bilirubin 0.40 (0.2-1.3) mg/dL AST 20 (17-59) U/L ALT 14 (0-50) U/L Alkaline Phosphatase 54 (38-126) U/L Troponin I (0.000-0.034) ng/mL Serum Total Protein 6.7 (6.3-8.2) g/dL Albumin 3.9 (3.5-5.0) g/dL Amylase 68 (30-110) U/L Lipase 82 (23-300) U/L Urinalys Dipstick Clnc Urine Color (YELLOW) Urine Appearance (CLEAR) Urine pH (5-6) Ur Specific Parks (1.005-1.025) POC Urine Protein Conf (Negative) Urine Ketones (NEGATIVE) Urine Nitrite (NEGATIVE) Urine Bilirubin (NEGATIVE) Urine Urobilinogen (0-1) mg/dL Urine Leukocytes (NEGATIVE) Urine WBC (Auto) (0-5) /HPF Urine RBC (Auto) (0-2) /HPF U Epithel Cells (Auto) (FEW) /HPF Urine Bacteria (Auto) (NEGATIVE) /HPF Urine RBC (0-5) Sancho/ul Ur Culture Indicated? Urine Glucose (NEGATIVE) mg/dL - Progress Progress: improved Progress Note: 07/10/21 01:09 Pt was fed upon arrival, and glucose stayed at an acceptable level during entire stay. Pt alert and oriented x3 during entire stay wo ectopy or focal weakness. 07/10/21 01:37 Counseled pt/family regarding: lab results, diagnosis, need for follow-up, rad results - Departure Departure Disposition: Home Clinical Impression: Hypoglycemia Condition: Stable Critical Care Time: No Referrals: YOSEF WILDE [Primary Care Provider] - Follow up/PCP as directed Instructions: Low Blood Sugar, Adult (DC) Additional Instructions: Watch blood glucose closely Follow up with Dr. Rodríguez in AM Return to ER as needed
[2021-07-09 23:34] LABS: Appearance CLEAR (CLEAR); Bilirubin NEGATIVE (NEGATIVE); Dipstick done @ ? MAIN LAB; Glucose NEGATIVE (NEGATIVE); Ketones NEGATIVE (NEGATIVE); Nitrite NEGATIVE (NEGATIVE); Protein,Urine Dip NEGATIVE (Negative); RBC SMALL Ery/ul (0-5); Urobilinogen 0.2 mg/dL (0-1)
[2021-07-09 23:39] LABS: Bacteria NONE SEEN /HPF (NEGATIVE); Urine Cultured Indicated? NO; WBC 0-2 /HPF (0-5)
[2021-07-10 01:13] VITALS: BP 168/79; PULSE 63
--- NOTE | 2021-07-10 08:55 | XRAY ---
Indication: Abdomen pain. History pancreatic tumor. Multiple contiguous axial images obtained through the abdomen and pelvis using 80 cc Isovue 370 contrast. Comparison: None. Lung bases demonstrates mild bilateral dependent atelectasis. Heart not enlarged. Small hiatal hernia with GE junction postsurgical changes. Left abdomen pain pump produces beam artifact. Stomach is distended with food/fluid. Noncontrasted stomach and bowel loops appear nonobstructed. There is moderate diffuse fecal debris throughout including mild rectal impaction. Contracted gallbladder without gallstones. No free fluid/air. Visualized pancreas demonstrates fatty replacement without focal solid/cystic mass. Tiny splenic calcified granulomas. Remaining liver, gallbladder, pancreas, spleen, adrenal glands, kidneys, ureters, and bladder are unremarkable. Mild scattered aortoiliac calcifications. No AAA or pathologic retroperitoneal lymphadenopathy. Osseous structures intact with mild osteopenia and minimal/mild degenerative changes throughout the spine. Impression: 1. Moderate diffuse fecal stasis with rectal impaction. 2. Chronic findings including small hiatal hernia, GE junction postsurgical changes, arteriosclerotic disease, chronic bony findings, and old granulomatous disease. Comment: Preliminary interpretation made by [facility]. No critical discrepancy.
--- NOTE | 2021-07-10 08:57 | XRAY ---
Indication: Altered mental status. Multiple contiguous axial images obtained through the head without contrast. Comparison: None Age-appropriate global atrophy and minimal periventricular degenerative micro-ischemia bilaterally. No acute intracranial hemorrhage, abnormal extra-axial fluid collection, or mass effect. Fourth ventricle is midline without hydrocephalus. Bony calvarium intact. Visualized paranasal sinuses and mastoid air cells are clear. Impression: Nonacute senile brain. Comment: Preliminary interpretation made by [facility]. No critical discrepancy.
== END 2021-07-10 01:26 | disposition home or self-care (01) ==
LOC: ED 22:04
DX: E16.2 Hypoglycemia, unspecified (principal); R40.4 Transient alteration of awareness; K86.1 Other chronic pancreatitis; D68.51 Activated protein C resistance; Z79.01 Long term (current) use of anticoagulants; Z79.899 Other long term (current) drug therapy
CPT/HCPCS: 36415; 70450; 74177; 80053; 81015; 82150; 82947; 83525; 83690; 84484; 84681; 85025; 85610; 85730; 99284

== ENCOUNTER 2022-08-31 22:01 | Emergency (ER) | payer MEDICARE ==
--- NOTE | 2022-08-31 22:07 | ERPHSYRPT ---
- History of Present Illness Time Seen by Provider: 08/31/22 22:06 Source: patient Exam Limitations: no limitations Physician History: 71-year-old male presents to the emergency room after an episode of low blood sugar. He reports a glucose level of 35 prior to arrival that responded to honey and crackers. His initial POC on arrival was 87. Patient had a heart cath performed today and has not ate very much. also brought up concern of increased bleeding from his puncture site in the right groin. Patient denies any pain in the groin, swelling or chest pain. No stents were placed during the cardiac cath today. He does have a history of factor V Leiden for which she takes warfarin daily. Patient also takes Plavix for his CAD for which he has 7 stents. Timing/Duration: today Severity: moderate Modifying Factors: Improves With: eating Associated Symptoms: nausea, No vomiting, No shortness of breath, No chest pain, No fever, No headaches, No syncope Allergies/Adverse Reactions: codeine Allergy (Mild, Verified 08/31/22 22:06) Itching hydromorphone HCl [From Dilaudid] Allergy (Mild, Verified 08/31/22 22:06) Nausea Home Medications: Clopidogrel Bisulfate [PLAVIX Tablet] 75 mg PO HS 02/21/13 [History] Tamsulosin HCl 0.4 mg [Flomax 0.4 MG] 0.4 mg PO HS 02/21/13 [History] Warfarin Sodium 5 mg [Jantoven] 4 mg PO HS 02/21/13 [History] Fludrocortisone Acetate 0.5 mg PO DAILY 03/26/21 [History] Lipase/Protease/Amylase [Ondina Monroy 36,000 Unit Capsule] 36,000 units PO AC 03/26/21 [History] Metoclopramide HCl 5 mg PO DAILY 03/26/21 [History] PANTOPRAZOLE 40 mg Tablet [Protonix 40MG Tablet] 40 mg PO QAM 03/26/21 [History] Isosorbide Mononitrate 30 mg [Imdur 30 MG] 30 mg PO DAILY 07/09/21 [History] Prednisone 5 mg [Deltasone 5 mg] 5 mg PO DAILY 07/09/21 [History] Hx Tetanus, Diphtheria Vaccination/Date Given: No (unsure) Hx Influenza Vaccination/Date Given: No Hx Pneumococcal Vaccination/Date Given: No Travel Risk - Vaccine Status Have you recieved a Covid-19 vaccination: Yes 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: [employer] - Review of Systems Constitutional: No Symptoms Eyes: No Symptoms Ears, Nose, & Throat: No Symptoms Respiratory: No Symptoms Cardiac: No Symptoms Abdominal/Gastrointestinal: No Symptoms Musculoskeletal: No Symptoms Skin: Other (right groin puncture site dressing saturated in blood) Neurological: Dizziness, No Focal Weakness, No Gait Changes, No Headache, No Speech Changes Psychological: No Symptoms Endocrine: No Symptoms Hematologic/Lymphatic: Other (FVL) - Past Medical History Pertinent Past Medical History: Yes Neurological History: No Pertinent History ENT History: Cataracts Cardiac History: Coronary Artery Disease, Myocardial Infarction ([place]) Respiratory History: No Pertinent History Endocrine Medical History: No Pertinent History Musculoskeletal History: No Pertinent History GI Medical History: No Pertinent History History: No Pertinent History Psycho-Social History: No Pertinent History Male Reproductive Disorders: No Pertinent History Other Medical History: chronic pancreatitis, pancreatic tumor. FACTOR 5. BARRETTS ESOPHAGUS. URINARY RETENTION - Past Surgical History Past Surgical History: Yes Neuro Surgical History: No Pertinent History Cardiac: Cardiac Catheterization, Cardiac Stent Gastrointestinal: Hernia Repair Musculoskeletal: Joint Replacement, Orthopedic Surgery Other Surgical History: L knee replacement 2010. Noah precedure. Pain pump placement in pancreas. L hand graft from abd tissue - Social History Smoking Status: Never smoker Exposure to second hand smoke: No Drug Use: none Patient Lives Alone: No Significant Family History: no pertinent family hx - Nursing Vital Signs Nursing Vital Signs: Initial Vital Signs Temperature 97.4 F 08/31/22 22:05 Pulse Rate 71 08/31/22 22:05 Respiratory Rate 17 08/31/22 22:05 Blood Pressure 143/69 08/31/22 22:05 O2 Sat by Pulse Oximetry 96 08/31/22 22:05 Pain Scale Pain Intensity 0 - Physical Exam General Appearance: no apparent distress, alert, thin Eye Exam: PERRL/EOMI, eyes nml inspection Ears, Nose, Throat Exam: normal ENT inspection Neck Exam: normal inspection, non-tender, supple, full range of motion Respiratory Exam: No respiratory distress Cardiovascular Exam: regular rate/rhythm, normal peripheral pulses, capillary refill <2 sec, No edema Gastrointestinal/Abdomen Exam: soft, No tenderness, No distention, No pulsatile mass Male Genitalia Exam: other (right groin puncture site, no active bleeding, no hematoma, non tender) Extremity Exam: normal inspection Neurologic Exam: alert, oriented x 3, cooperative Skin Exam: warm, dry, pale SpO2 Interpretation: normal O2 Delivery: Room Air - Course Nursing assessment & vital signs reviewed: Yes Ordered Tests: Active Orders 24 hr Category Date Time Status IV Insertion STAT Care 08/31/22 22:21 Completed POCT Glucose Check STAT Care 08/31/22 22:12 Completed CBC W DIFF Stat Lab 08/31/22 22:45 Completed CMP Stat Lab 08/31/22 22:45 Completed MAGNESIUM Stat Lab 08/31/22 22:45 Completed POCT GLUCOSE Stat Lab 08/31/22 22:09 Completed PROTIME WITH INR Stat Lab 08/31/22 22:45 Completed PTT Stat Lab 08/31/22 22:45 Completed Medication Summary Discontinued Medications Generic Name Dose Route Start Last Admin Trade Name Freq PRN Reason Stop Dose Admin Dextrose/Sodium Chloride 500 mls @ 100 mls/hr 08/31/22 22:30 08/31/22 22:30 Dextrose 5%-Normal Saline 500 Ml IV 09/30/22 22:29 Not Given .Q5H [facility] Dextrose Confirm 08/31/22 22:29 Dextrose 5%/Water Iv Soln. 500 Ml Administered 08/31/22 22:30 Dose 500 mls @ ud IV .STK-MED ONE Dextrose 500 mls @ 100 mls/hr 08/31/22 22:30 08/31/22 22:31 Dextrose 5%/Water Iv Soln. 500 Ml IV 09/30/22 22:29 100 mls/hr .Q5H ALEXEY Administration Lab/Rad Data: Laboratory Result Diagrams 08/31/22 22:45 08/31/22 22:45 Laboratory Results 08/31/22 08/31/22 08/31/22 Range/Units 22:45 22:45 22:45 WBC 10.9 H (4.0-10.5) x10^3/uL RBC 3.53 L (4.1-5.6) x10^6/uL Hgb 10.3 L (12.5-18.0) g/dL Hct 33.8 L (42-50) % MCV 95.8 (78-100) fL MCH 29.2 (26-32) pg MCHC 30.5 L (32-36) g/dL RDW 14.8 H (11.5-14.0) % Plt Count 196 (150-450) x10^3/uL MPV 9.2 (7.5-11.0) fL Gran % 72.8 H (36.0-66.0) % Immature Gran % (Auto) 0.3 (0.00-0.4) % Nucleat RBC Rel Count 0.0 (0.00-0.1) % Eos # (Auto) 0.13 (0-0.5) x10^3/uL Immature Gran # (Auto) 0.03 (0.00-0.03) x10^3u/L Absolute Lymphs (auto) 1.81 (1.0-4.6) x10^3/uL Absolute Monos (auto) 0.94 (0.0-1.3) x10^3/uL Absolute Nucleated RBC 0.00 (0.00-0.01) x10^3u/L Lymphocytes % 16.7 L (24.0-44.0) % Monocytes % 8.7 (0.0-12.0) % Eosinophils % 1.2 (0.00-5.0) % Basophils % 0.3 (0.0-0.4) % Absolute Granulocytes 7.92 H (1.4-6.9) x10^3/uL Basophils # 0.03 (0-0.4) x10^3/uL PT 12.2 (9.4-12.5) SECONDS INR 1.13 (0.8-3.0) APTT 24.2 L (25.1-36.5) SECONDS Sodium 139 (137-145) mmol/L Potassium 3.6 (3.5-5.1) mmol/L Chloride 104 (98-107) mmol/L Carbon Dioxide 26 (22-30) mmol/L Anion Gap 11.7 (5-15) MEQ/L BUN 14 (9-20) mg/dL Creatinine 0.87 (0.66-1.25) mg/dL Estimated GFR > 60.0 ML/MIN Glucose 130 H (74-106) mg/dL POC Glucometer (74 to 106) mg/dL Calcium 8.1 L (8.4-10.2) mg/dL Magnesium 2.3 (1.6-2.3) mg/dL Total Bilirubin 0.50 (0.2-1.3) mg/dL AST 31 (17-59) U/L ALT 29 (0-50) U/L Alkaline Phosphatase 65 (38-126) U/L Serum Total Protein 6.5 (6.3-8.2) g/dL Albumin 3.4 L (3.5-5.0) g/dL 08/31/22 Range/Units 22:09 WBC (4.0-10.5) x10^3/uL RBC (4.1-5.6) x10^6/uL Hgb (12.5-18.0) g/dL Hct (42-50) % MCV (78-100) fL MCH (26-32) pg MCHC (32-36) g/dL RDW (11.5-14.0) % Plt Count (150-450) x10^3/uL MPV (7.5-11.0) fL Gran % (36.0-66.0) % Immature Gran % (Auto) (0.00-0.4) % Nucleat RBC Rel Count (0.00-0.1) % Eos # (Auto) (0-0.5) x10^3/uL Immature Gran # (Auto) (0.00-0.03) x10^3u/L Absolute Lymphs (auto) (1.0-4.6) x10^3/uL Absolute Monos (auto) (0.0-1.3) x10^3/uL Absolute Nucleated RBC (0.00-0.01) x10^3u/L Lymphocytes % (24.0-44.0) % Monocytes % (0.0-12.0) % Eosinophils % (0.00-5.0) % Basophils % (0.0-0.4) % Absolute Granulocytes (1.4-6.9) x10^3/uL Basophils # (0-0.4) x10^3/uL PT (9.4-12.5) SECONDS INR (0.8-3.0) APTT (25.1-36.5) SECONDS Sodium (137-145) mmol/L Potassium (3.5-5.1) mmol/L Chloride (98-107) mmol/L Carbon Dioxide (22-30) mmol/L Anion Gap (5-15) MEQ/L BUN (9-20) mg/dL Creatinine (0.66-1.25) mg/dL Estimated GFR ML/MIN Glucose (74-106) mg/dL POC Glucometer 87 (74 to 106) mg/dL Calcium (8.4-10.2) mg/dL Magnesium (1.6-2.3) mg/dL Total Bilirubin (0.2-1.3) mg/dL AST (17-59) U/L ALT (0-50) U/L Alkaline Phosphatase (38-126) U/L Serum Total Protein (6.3-8.2) g/dL Albumin (3.5-5.0) g/dL - Progress Progress Note: Patient given snacks and a Pepsi to help bring his glucose levels up. He is feeling much better since prior to arrival. Dressing over puncture site was removed and 4 x 4 placed with a sandbag on top to help apply pressure. CBC, CMP, PT, PTT, INR ordered. We will start D5 on the patient to help increase his glucose levels and will repeat POC glucose prior to discharge. Hemoglobin was 10.3 which is similar to his baseline. Glucose was 130 on CMP. INR was 1.3. Puncture site continued to ooze, but no hematomas present. Telfa and 4 x 4's were used to create a pressure dressing and Tegaderm was placed over top to keep in place. I advised the patient to place a weighted bag over the puncture site at home and if the bleeding continued to call [facility]. Counseled pt/family regarding: lab results, diagnosis, need for follow-up Medical Desision Making - Diagnostic Testing Diagnostic test were ordered, analyzed, and reviewed by me: Yes Radiological Interpretation: Interpreted by me - Risk of complications Low Risk: Low risk of morbidity from additional dx testing or treatment - Departure Departure Disposition: Home Clinical Impression: Hypoglycemia, S/P cardiac catheterization, Bleeding at insertion site Condition: Good Critical Care Time: No Referrals: YOSEF WILDE [Primary Care Provider] - Follow up/PCP as directed Instructions: Low Blood Sugar, Adult (DC) Additional Instructions: If bleeding from puncture site continues call installation manager physician for [facility]. Advised to place pressure over site w/ weighted rice bag.
[2022-08-31] MEDS ORDERED: Dextrose 5%/Water IV Soln. 500 ML 500 ML IV ONE (22:29)
[2022-08-31] MEDS ORDERED: Dextrose 5%/Water IV Soln. 500 ML 500 ML IV SCH (22:30)
[2022-08-31] MEDS ORDERED: DEXTROSE 5%-NORMAL SALINE 500 ML 500 ML IV SCH (22:30)
[2022-08-31 22:47] LABS: Absolute Neutrophil Ct (ANC) 7.92 x10^3/uL (1.4-6.9); BASOPHIL % 0.3 % (0.0-0.4); Basophil (Absolute #) 0.03 x10^3/uL (0-0.4); Eosinophil % 1.2 % (0.00-5.0); Eosinophil (Absolute #) 0.13 x10^3/uL (0-0.5); Hematocrit 33.8 % (42-50); Hemoglobin 10.3 g/dL (12.5-18.0); IMMATURE GRAN # 0.03 x10^3u/L (0.00-0.03); IMMATURE GRAN % 0.3 % (0.00-0.4); Lymphocyte (Absolute #) 1.81 x10^3/uL (1.0-4.6); Lymphocytes % 16.7 % (24.0-44.0); Mean Cell Volume 95.8 fL (78-100); Mean Corpuscular Hemoglobin 29.2 pg (26-32); Mean Corpuscular Hgb Concent. 30.5 g/dL (32-36); Mean Platelet Volume 9.2 fL (7.5-11.0); Monocyte (Absolute #) 0.94 x10^3/uL (0.0-1.3); Monocytes % 8.7 % (0.0-12.0); Neutrophil % 72.8 % (36.0-66.0); Platelet Count 196 x10^3/uL (150-450); Red Blood Count 3.53 x10^6/uL (4.1-5.6); Red Cell Distribution Width 14.8 % (11.5-14.0); White Blood Count 10.9 x10^3/uL (4.0-10.5)
[2022-08-31 23:02] LABS: ALBUMIN 3.4 g/dL (3.5-5.0); ALKALINE PHOSPHATASE 65 U/L (38-126); ANION GAP 11.7 MEQ/L (5-15); BLOOD UREA NITROGEN 14 mg/dL (9-20); CHLORIDE 104 mmol/L (98-107); Calcium 8.1 mg/dL (8.4-10.2); Carbon Dioxide 26 mmol/L (22-30); Creatinine 1 0.87 mg/dL (0.66-1.25); EST GLOMERULAR FILTRATION RATE > 60.0 ML/MIN; Glucose 130 mg/dL (74-106); MAGNESIUM 2.3 mg/dL (1.6-2.3); Potassium 3.6 mmol/L (3.5-5.1); SGOT/AST 31 U/L (17-59); SGPT/ALT 29 U/L (0-50); SODIUM 139 mmol/L (137-145); Total Protein 6.5 g/dL (6.3-8.2)
[2022-08-31 23:04] LABS: INR 1.13 (0.8-3.0); PROTIME 12.2 SECONDS (9.4-12.5); PTT 24.2 SECONDS (25.1-36.5)
[2022-08-31 23:22] VITALS: BP 126/68; PULSE 70; O2SAT 100
== END 2022-08-31 23:24 | disposition home or self-care (01) ==
LOC: ED 22:01
DX: E16.2 Hypoglycemia, unspecified (principal); L76.22 Postprocedural hemorrhage of skin and subcutaneous tissue following other procedure; D68.51 Activated protein C resistance; I25.10 Atherosclerotic heart disease of native coronary artery without angina pectoris; Z79.01 Long term (current) use of anticoagulants; Z79.02 Long term (current) use of antithrombotics/antiplatelets; Z79.899 Other long term (current) drug therapy
CPT/HCPCS: 36000; 36415; 80053; 82947; 83735; 85025; 85610; 85730; 99283

== ENCOUNTER 2023-04-03 01:26 | Emergency (ER) | payer MEDICARE ==
[2023-04-03 01:39] VITALS: TEMP 98
[2023-04-03 02:11] LABS: Absolute Neutrophil Ct (ANC) 3.57 x10^3/uL (1.4-6.9); BASOPHIL % 0.6 % (0.0-0.4); Basophil (Absolute #) 0.03 x10^3/uL (0-0.4); Eosinophil % 0.2 % (0.00-5.0); Eosinophil (Absolute #) 0.01 x10^3/uL (0-0.5); Hematocrit 34.5 % (42-50); Hemoglobin 10.9 g/dL (12.5-18.0); IMMATURE GRAN # 0.01 x10^3u/L (0.00-0.03); IMMATURE GRAN % 0.2 % (0.00-0.4); Lymphocyte (Absolute #) 1.27 x10^3/uL (1.0-4.6); Lymphocytes % 23.3 % (24.0-44.0); Mean Cell Volume 88.7 fL (78-100); Mean Corpuscular Hgb Concent. 31.6 g/dL (32-36); Mean Platelet Volume 9.8 fL (7.5-11.0); Monocyte (Absolute #) 0.55 x10^3/uL (0.0-1.3); Monocytes % 10.1 % (0.0-12.0); Neutrophil % 65.6 % (36.0-66.0); Platelet Count 226 x10^3/uL (150-450); Red Blood Count 3.89 x10^6/uL (4.1-5.6); Red Cell Distribution Width 17.1 % (11.5-14.0); White Blood Count 5.4 x10^3/uL (4.0-10.5)
[2023-04-03 02:18] LABS: Appearance Clear (Clear); Bacteria None Seen /HPF (None Seen); Bilirubin Negative (Negative); Blood Negative (Negative); Epithelial Cells None Seen /HPF (None Seen); Glucose, Urine Negative (Negative); Hyaline Casts NONE SEEN /LPF (0-2); Ketones Negative (Negative); Leukocyte Esterase Negative (Negative); Nitrite Negative (Negative); Protein,Urine Dip Negative (Negative); RBC 0-2 /HPF (0-5); Urobilinogen 0.2 mg/dL (0.2); WBC 0-2 /HPF (0-5)
[2023-04-03 02:19] LABS: ADD URINE CULTURE? NO (NO)
[2023-04-03 02:25] LABS: ANION GAP 11.6 MEQ/L (5-15); BILIRUBIN,TOTAL 0.7 mg/dL (0.2-1.3); Calcium 9.1 mg/dL (8.4-10.2); Creatinine 1 0.73 mg/dL (0.66-1.25); EST GLOMERULAR FILTRATION RATE 96.1 ML/MIN; Total Protein 7.1 g/dL (6.3-8.2)
[2023-04-03 03:08] LABS: INFLUENZA A NEGATIVE (NEGATIVE); INFLUENZA B NEGATIVE (NEGATIVE); RESPIRATORY SYNCTIAL VIRUS NEGATIVE (NEGATIVE); SARS-CoV-2 Xpert Express NEGATIVE (NEGATIVE)
--- NOTE | 2023-04-03 03:25 | ERPHSYRPT ---
- History of Present Illness Time Seen by Provider: 04/03/23 01:50 Source: patient Exam Limitations: no limitations Patient Subjective Stated Complaint: "I feel like I'm burning up on the inside. It soares when I urinate and I ache all over". Triage Nursing Assessment: Pt ambulated into ER without diff, spouse at bedside. Pt c/o generalized pain all over, states, "I feel like I'm burning up on the inside and it soares when I urinate". Pt had pain pump revision on 03/28/23 at [facility] for chronic pancreatitis. Pt's ill feelings began on Saturday around 1pm. Physician History: Patient is a 72-year-old male presents to the emergency department for evaluation of a burning sensation throughout his body. Patient states "I feel like I am burning inside". Patient states he aches all over. Patient also exp eriences burning sensation when he urinates. Symptoms started yesterday. Patient reports that he had a pain pump implanted on March 28 at [facility]. Pain pump implanted was done to address pain from chronic pancreatitis. No trauma. No fever. No nausea vomiting or diaphoresis. No ch est pain or shortness of breath. Patient denies history of the same. He voices no other complaints or concerns at this time. Portions of this note were created with voice recognition technology. There may be grammatical, spelling, punctuation or sound alike errors Timing/Duration: yesterday Severity: moderate Modifying Factors: Improves With: nothing Associated Symptoms: denies symptoms Allergies/Adverse Reactions: codeine Allergy (Mild, Verified 04/03/23 01:48) Itching hydromorphone HCl [From Dilaudid] Allergy (Mild, Verified 04/03/23 01:48) Nausea Home Medications: Clopidogrel Bisulfate [PLAVIX Tablet] 75 mg PO DAILY 02/21/13 [History] Tamsulosin HCl 0.4 mg [Flomax 0.4 MG] 0.4 mg PO DAILY 02/21/13 [History] Warfarin Sodium 5 mg [Coumadin] 4 mg PO DAILY 02/21/13 [History] Fludrocortisone Acetate 0.5 mg PO DAILY 03/26/21 [History] Metoclopramide HCl 5 mg PO DAILY 03/26/21 [History] PANTOPRAZOLE 40 mg Tablet [Protonix 40MG Tablet] 40 mg PO QAM 03/26/21 [History] Prednisone 5 mg [Deltasone 5 mg] 5 mg PO DAILY 07/09/21 [History] Hx Tetanus, Diphtheria Vaccination/Date Given: No Hx Influenza Vaccination/Date Given: No Hx Pneumococcal Vaccination/Date Given: No Immunizations Up to Date: No Travel Risk - International Travel Have you traveled outside of the country in past 3 weeks: No - Coronavirus Screening Are you exhibiting any of the following symptoms?: No Close contact with a COVID-19 positive Pt in past 14-21 Days: No - Vaccine Status Have you recieved a Covid-19 vaccination: Yes 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 - Review of Systems Constitutional: No Symptoms, No Fever, No Chills Eyes: No Symptoms Ears, Nose, & Throat: No Symptoms Respiratory: No Symptoms, No Cough, No Dyspnea Cardiac: No Symptoms, No Chest Pain, No Edema, No Syncope Abdominal/Gastrointestinal: No Symptoms, No Abdominal Pain, No Nausea, No Vomiting, No Diarrhea Genitourinary Symptoms: No Symptoms, No Dysuria Musculoskeletal: No Symptoms, No Back Pain, No Neck Pain Skin: No Symptoms, No Rash Neurological: No Symptoms, No Dizziness, No Focal Weakness, No Sensory Changes Psychological: No Symptoms Endocrine: No Symptoms Hematologic/Lymphatic: No Symptoms Immunological/Allergic: No Symptoms All Other Systems: Reviewed and Negative - Past Medical History Pertinent Past Medical History: Yes Neurological History: No Pertinent History ENT History: Cataracts Cardiac History: Coronary Artery Disease, Myocardial Infarction ([place]) Respiratory History: No Pertinent History Endocrine Medical History: No Pertinent History Musculoskeletal History: No Pertinent History GI Medical History: No Pertinent History History: No Pertinent History Psycho-Social History: No Pertinent History Male Reproductive Disorders: No Pertinent History Other Medical History: chronic pancreatitis, pancreatic tumor. FACTOR 5. BARRETTS ESOPHAGUS. URINARY RETENTION - Past Surgical History Past Surgical History: Yes Neuro Surgical History: No Pertinent History Cardiac: Cardiac Catheterization, Cardiac Stent Gastrointestinal: Hernia Repair Musculoskeletal: Joint Replacement, Orthopedic Surgery Other Surgical History: L knee replacement 2010. Noah procedure. Pain pump placement in pancreas, revision of pain pump 03/28/23. L hand graft from abd tissue - Social History Smoking Status: Never smoker Exposure to second hand smoke: No Drug Use: none Patient Lives Alone: No Significant Family History: no pertinent family hx - Nursing Vital Signs Nursing Vital Signs: Initial Vital Signs Temperature 98.0 F 04/03/23 01:36 Pulse Rate 70 04/03/23 01:36 Respiratory Rate 16 04/03/23 01:36 Blood Pressure 185/80 04/03/23 01:36 O2 Sat by Pulse Oximetry 98 04/03/23 01:36 Pain Scale Pain Intensity 6 - Physical Exam General Appearance: no apparent distress, alert Eye Exam: PERRL/EOMI, eyes nml inspection Ears, Nose, Throat Exam: normal ENT inspection, moist mucous membranes Neck Exam: normal inspection, full range of motion Respiratory Exam: normal breath sounds, lungs clear, airway intact, No respiratory distress Cardiovascular Exam: regular rate/rhythm, normal heart sounds, normal peripheral pulses Gastrointestinal/Abdomen Exam: soft, normal bowel sounds, No tenderness, No mass Back Exam: normal inspection, normal range of motion, No CVA tenderness, No vertebral tenderness Extremity Exam: normal inspection, normal range of motion, pelvis stable Neurologic Exam: alert, oriented x 3, cooperative, normal mood/affect, sensation nml, No motor deficits Skin Exam: normal color, warm, dry, No rash Lymphatic Exam: No adenopathy SpO2 Interpretation: normal SpO2: 98 O2 Delivery: Room Air - Course Nursing assessment & vital signs reviewed: Yes EKG Interpreted by Me: RATE, Sinus Rhythm, NORMAL AXIS, NORMAL INTERVALS Ordered Tests: Active Orders 24 hr Category Date Time Status EKG-ER Only STAT Care 04/03/23 03:48 Active CBC W DIFF Stat Lab 04/03/23 02:08 Completed CMP Stat Lab 04/03/23 02:08 Completed TROPONIN Q4H Lab 04/03/23 02:08 Completed TROPONIN Q4H Lab 04/03/23 07:30 Ordered TROPONIN Q4H Lab 04/03/23 11:30 Ordered UA W/RFX UR CULTURE Stat Lab 04/03/23 02:06 Completed Lab/Rad Data: Laboratory Result Diagrams 04/03/23 02:08 04/03/23 02:08 Laboratory Results 04/03/23 04/03/23 04/03/23 Range/Units 02:30 02:08 02:08 WBC (4.0-10.5) x10^3/uL RBC (4.1-5.6) x10^6/uL Hgb (12.5-18.0) g/dL Hct (42-50) % MCV (78-100) fL MCH (26-32) pg MCHC (32-36) g/dL RDW (11.5-14.0) % Plt Count (150-450) x10^3/uL MPV (7.5-11.0) fL Gran % (36.0-66.0) % Immature Gran % (Auto) (0.00-0.4) % Nucleat RBC Rel Count (0.00-0.1) % Eos # (Auto) (0-0.5) x10^3/uL Immature Gran # (Auto) (0.00-0.03) x10^3u/L Absolute Lymphs (auto) (1.0-4.6) x10^3/uL Absolute Monos (auto) (0.0-1.3) x10^3/uL Absolute Nucleated RBC (0.00-0.01) x10^3u/L Lymphocytes % (24.0-44.0) % Monocytes % (0.0-12.0) % Eosinophils % (0.00-5.0) % Basophils % (0.0-0.4) % Absolute Granulocytes (1.4-6.9) x10^3/uL Basophils # (0-0.4) x10^3/uL Sodium 138 (137-145) mmol/L Potassium 4.0 (3.5-5.1) mmol/L Chloride 108 H (98-107) mmol/L Carbon Dioxide 23 (22-30) mmol/L Anion Gap 11.6 (5-15) MEQ/L BUN 16 (9-20) mg/dL Creatinine 0.73 (0.66-1.25) mg/dL Estimated GFR 96.1 ML/MIN Glucose 123 H (74-106) mg/dL Calcium 9.1 (8.4-10.2) mg/dL Total Bilirubin 0.70 (0.2-1.3) mg/dL AST 21 (17-59) U/L ALT 13 (0-50) U/L Alkaline Phosphatase 76 (38-126) U/L Troponin I < 0.012 (0.000-0.034) ng/mL Serum Total Protein 7.1 (6.3-8.2) g/dL Albumin 4.0 (3.5-5.0) g/dL Urine Color (Yellow) Urine Appearance (Clear) Urine pH (4.6-8.0) Ur Specific Spivey (1.005-1.030) Urine Protein (Negative) Urine Glucose (UA) (Negative) mg/dL Urine Ketones (Negative) Urine Blood (Negative) Urine Nitrite (Negative) Urine Bilirubin (Negative) Urine Urobilinogen (0.2) mg/dL Ur Leukocyte Esterase (Negative) U Hyaline Cast (Auto) (0-2) /LPF Urine Microscopic RBC (0-5) /HPF Urine Microscopic WBC (0-5) /HPF Ur Epithelial Cells (None Seen) /HPF Urine Bacteria (None Seen) /HPF Urine Culture Reflexed (NO) Influenza Type A Ag NEGATIVE (NEGATIVE) Influenza Type B Ag NEGATIVE (NEGATIVE) RSV (PCR) NEGATIVE (NEGATIVE) SARS-CoV-2 (PCR) NEGATIVE (NEGATIVE) 04/03/23 04/03/23 Range/Units 02:08 02:06 WBC 5.4 (4.0-10.5) x10^3/uL RBC 3.89 L (4.1-5.6) x10^6/uL Hgb 10.9 L (12.5-18.0) g/dL Hct 34.5 L (42-50) % MCV 88.7 (78-100) fL MCH 28.0 (26-32) pg MCHC 31.6 L (32-36) g/dL RDW 17.1 H (11.5-14.0) % Plt Count 226 (150-450) x10^3/uL MPV 9.8 (7.5-11.0) fL Gran % 65.6 (36.0-66.0) % Immature Gran % (Auto) 0.2 (0.00-0.4) % Nucleat RBC Rel Count 0.0 (0.00-0.1) % Eos # (Auto) 0.01 (0-0.5) x10^3/uL Immature Gran # (Auto) 0.01 (0.00-0.03) x10^3u/L Absolute Lymphs (auto) 1.27 (1.0-4.6) x10^3/uL Absolute Monos (auto) 0.55 (0.0-1.3) x10^3/uL Absolute Nucleated RBC 0.00 (0.00-0.01) x10^3u/L Lymphocytes % 23.3 L (24.0-44.0) % Monocytes % 10.1 (0.0-12.0) % Eosinophils % 0.2 (0.00-5.0) % Basophils % 0.6 (0.0-0.4) % Absolute Granulocytes 3.57 (1.4-6.9) x10^3/uL Basophils # 0.03 (0-0.4) x10^3/uL Sodium (137-145) mmol/L Potassium (3.5-5.1) mmol/L Chloride (98-107) mmol/L Carbon Dioxide (22-30) mmol/L Anion Gap (5-15) MEQ/L BUN (9-20) mg/dL Creatinine (0.66-1.25) mg/dL Estimated GFR ML/MIN Glucose (74-106) mg/dL Calcium (8.4-10.2) mg/dL Total Bilirubin (0.2-1.3) mg/dL AST (17-59) U/L ALT (0-50) U/L Alkaline Phosphatase (38-126) U/L Troponin I (0.000-0.034) ng/mL Serum Total Protein (6.3-8.2) g/dL Albumin (3.5-5.0) g/dL Urine Color Yellow (Yellow) Urine Appearance Clear (Clear) Urine pH 8.0 (4.6-8.0) Ur Specific Spivey 1.010 (1.005-1.030) Urine Protein Negative (Negative) Urine Glucose (UA) Negative (Negative) mg/dL Urine Ketones Negative (Negative) Urine Blood Negative (Negative) Urine Nitrite Negative (Negative) Urine Bilirubin Negative (Negative) Urine Urobilinogen 0.2 (0.2) mg/dL Ur Leukocyte Esterase Negative (Negative) U Hyaline Cast (Auto) NONE SEEN (0-2) /LPF Urine Microscopic RBC 0-2 (0-5) /HPF Urine Microscopic WBC 0-2 (0-5) /HPF Ur Epithelial Cells None Seen (None Seen) /HPF Urine Bacteria None Seen (None Seen) /HPF Urine Culture Reflexed NO (NO) Influenza Type A Ag (NEGATIVE) Influenza Type B Ag (NEGATIVE) RSV (PCR) (NEGATIVE) SARS-CoV-2 (PCR) (NEGATIVE) - Progress Progress: improved Progress Note: Patient 72-year-old male presents to our ED for feeling myalgias and heat within his body. Physical exam nonremarkable. EKG normal sinus rhythm. CBC reveals a normocytic anemia however this appears to be chronic and patient's current hemoglobin is improved as compared to his previous result. CMP essentially nonremarkable. COVID test negative. Troponin negative. Urinalysis unremarkable. We attempted to contact patient's surgeon, the physician that implanted the pain pump. However no return call. We tried several times. While waiting for return call patient came to the nursing station. He states he felt much better and wanted to go home. Vital stable. Patient discharged per his request. Patient states he will follow-up with his physician in the morning. He voices no other complaints or concerns at this time. Portions of this note were created with voice recognition technology. There may be grammatical, spelling, punctuation or sound alike errors Complexity of problem addressed is moderate acute complicated No critical care time Complexity of data reviewed and analyzed is moderate. Test ordered test reviewed. Dr. Heck independently reviewed EKG and laboratory studies. Results analyzed and correlated clinically with history and physical exam. Risk of complication and or risk of morbidity/mortality of patient management is low. Vital stable. Time spent to discharge patient is approximately 10 minutes. Plan of care established for shared decision making. No social determinants of health present impede follow-up. Portions of this note were created with voice recognition technology. There may be grammatical, spelling, punctuation or sound alike errors 04/03/23 05:11 Counseled pt/family regarding: lab results, diagnosis, need for follow-up - Departure Departure Disposition: Home Clinical Impression: Well adult, Myalgia Condition: Stable Critical Care Time: No Referrals: YOSEF WILDE [Primary Care Provider] - Follow up/PCP as directed Instructions: Yearly Physical for Adults Additional Instructions: Discharge/Care Plan KEECRISTOFER JORDAN was seen on 04/03/23 in the Emergency Room. The patient was counseled regarding Diagnosis,Lab results, Imaging studies, need for follow up and when to return to the Emergency Room. Prescriptions given: Discharge Note I have spoken with the patient and/or caregivers. I have explained the patient's condition, diagnosis and treatment plan based on the information available to me at this time. I have answered the patient's and/or caregiver's questions and addressed any concerns. The patient and/or caregivers have as good understanding of the patient's diagnosis, condition and treatment plan as can be expected at this point. The vital signs have been stable. The patient's condition is stable and appropriate for discharge from the emergency department. The patient will pursue further outpatient evaluation with the primary care physician or other designated or consulting physician as outlined in the discharge instructions. The patient and/or caregivers are agreeable to this plan of care and follow-up instructions have been explained in detail. The patient and/or caregivers have received these instruction. The patient/and or caregivers are aware that any significant change in condition or worsening of symptoms should prompt an immediate return to this or the closest emergency department or call 911.
[2023-04-03 04:04] VITALS: O2SAT 98
[2023-04-03 05:13] VITALS: BP 151/83; PULSE 79; RESP 16
== END 2023-04-03 05:13 | disposition home or self-care (01) ==
LOC: ED 01:26
DX: Z71.1 Person with feared health complaint in whom no diagnosis is made (principal); M79.10 Myalgia, unspecified site; R30.0 Dysuria; Z79.01 Long term (current) use of anticoagulants; Z79.02 Long term (current) use of antithrombotics/antiplatelets; Z79.52 Long term (current) use of systemic steroids; Z79.899 Other long term (current) drug therapy; Z20.828 Contact with and (suspected) exposure to other viral communicable diseases
CPT/HCPCS: 0241U; 36415; 80053; 81001; 84484; 85025; 93005; 99283

== ENCOUNTER 2023-08-05 17:54 | Emergency (ER) | payer MEDICARE ==
[2023-08-05 18:11] VITALS: TEMP 98.4
[2023-08-05] MEDS ORDERED: Sodium Chloride 0.9% 500 ML 500 ML IV ONE (18:41)
[2023-08-05] MEDS ORDERED: MORPHINE SULFATE 4 MG INJ ONE ×3 (18:41→21:47)
[2023-08-05] MEDS ORDERED: Zofran 4 MG/2 ML VIAL ONE (18:41)
[2023-08-05] MEDS: Sodium Chloride 0.9% 500 ML 500 ML IV ONE (18:42)
[2023-08-05] MEDS: MORPHINE SULFATE 4 MG INJ IV ONE ×3 (18:43→21:47)
[2023-08-05] MEDS: Zofran 4 MG/2 ML VIAL IV ONE (18:43)
--- NOTE | 2023-08-05 18:43 | ERPHSYRPT ---
- History of Present Illness Time Seen by Provider: 08/05/23 17:58 Source: patient Exam Limitations: no limitations Patient Subjective Stated Complaint: Pt c/o of left lower medial back pain for the past couple of days, pt does have a pain pump in the front and the catheter runs back in that area, pt has the pump for his pancreas due to chronic pancreatitis Triage Nursing Assessment: Pt brought to the ER by his , hypertensive, rates the pain as 10/10, pulses normal, skin n/w/d, no difficulty breathing, denies N&V, denies diarrhea, pt walked into the ER with a stable slow gait Physician History: 72 years old male with 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 Patient reports mild radiation to left lower extremity which is normal for the back pain. Patient denies any numbness or weakness of lower extremities. No fever or chills reported. Pain is sharp throbbing moderate to severe with no significant aggravating or relieving factors. Allergies/Adverse Reactions: codeine Allergy (Mild, Verified 08/05/23 18:11) Itching hydromorphone HCl [From Dilaudid] Allergy (Mild, Verified 08/05/23 18:11) Nausea Home Medications: Clopidogrel Bisulfate [PLAVIX Tablet] 75 mg PO DAILY 02/21/13 [History] Tamsulosin HCl 0.4 mg [Flomax 0.4 MG] 0.4 mg PO DAILY 02/21/13 [History] Warfarin Sodium 5 mg [Coumadin] 4 mg PO DAILY 02/21/13 [History] Fludrocortisone Acetate 0.5 mg PO DAILY 03/26/21 [History] Metoclopramide HCl 5 mg PO DAILY 03/26/21 [History] PANTOPRAZOLE 40 mg Tablet [Protonix 40MG Tablet] 40 mg PO QAM 03/26/21 [History] Prednisone 5 mg [Deltasone 5 mg] 5 mg PO DAILY 07/09/21 [History] Hx Tetanus, Diphtheria Vaccination/Date Given: No Hx Influenza Vaccination/Date Given: No Hx Pneumococcal Vaccination/Date Given: No Travel Risk - International Travel Have you traveled outside of the country in past 3 weeks: No - Emerging Infectious Disease Are you exhibiting symptoms associated with any current EIDs: No - Review of Systems Constitutional: No Symptoms Ears, Nose, & Throat: No Symptoms Respiratory: No Symptoms Cardiac: No Symptoms Abdominal/Gastrointestinal: No Symptoms Genitourinary Symptoms: No Symptoms Musculoskeletal: Back Pain Skin: No Symptoms Neurological: No Symptoms Endocrine: No Symptoms Hematologic/Lymphatic: No Symptoms - Past Medical History Pertinent Past Medical History: Yes Neurological History: No Pertinent History ENT History: Cataracts Cardiac History: Coronary Artery Disease, Myocardial Infarction (ND) Respiratory History: No Pertinent History Endocrine Medical History: No Pertinent History Musculoskeletal History: No Pertinent History GI Medical History: No Pertinent History History: No Pertinent History Psycho-Social History: No Pertinent History Male Reproductive Disorders: No Pertinent History Other Medical History: chronic pancreatitis, pancreatic tumor. FACTOR 5. BARRETTS ESOPHAGUS. URINARY RETENTION - Past Surgical History Past Surgical History: Yes Neuro Surgical History: No Pertinent History Cardiac: Cardiac Catheterization, Cardiac Stent Gastrointestinal: Hernia Repair Musculoskeletal: Joint Replacement, Orthopedic Surgery Other Surgical History: L knee replacement 2010. Noah procedure. Pain pump placement in pancreas, revision of pain pump 03/28/23. L hand graft from abd tissue Significant Family History: no pertinent family hx - Social History Smoking Status: Never smoker Exposure to second hand smoke: No Drug Use: none Patient Lives Alone: No - Nursing Vital Signs Nursing Vital Signs: Initial Vital Signs Temperature 98.4 F 08/05/23 18:03 Pulse Rate 56 L 08/05/23 18:03 Blood Pressure 148/77 08/05/23 18:03 O2 Sat by Pulse Oximetry 98 08/05/23 18:03 Pain Scale Pain Intensity [Left Lower 10 Medial Back] Pain Intensity 8 - Physical Exam General Appearance: no apparent distress, alert Ears, Nose, Throat Exam: normal ENT inspection Neck Exam: normal inspection, full range of motion Respiratory Exam: normal breath sounds, lungs clear Cardiovascular Exam: regular rate/rhythm, normal heart sounds Gastrointestinal Exam: soft, normal bowel sounds, No tenderness Back Exam: normal inspection, decreased range of motion, other (Positive straight leg raising test 60 degree on the left.) Extremity Exam: normal inspection, normal range of motion Neurologic Exam: alert, oriented x 3, cooperative, 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 as tested, normal mood/affect, sensation nml, No motor deficits Skin Exam: normal color SpO2 Interpretation: normal SpO2: 98 O2 Delivery: Room Air Ordered Tests: Active Orders 24 hr Category Date Time Status IV Insertion STAT Care 08/05/23 18:26 Active NPO (ED) STAT Care 08/05/23 18:26 Active ABDOMEN AND PELVIS W CONTRAST [CT] Stat Exams 08/05/23 18:26 Taken LUMBAR SPINE WITH [CT] Stat Exams 08/05/23 18:28 Taken BLOOD CULTURE Stat Lab 08/05/23 19:20 Received CBC W DIFF Stat Lab 08/05/23 18:35 Completed CMP Stat Lab 08/05/23 18:35 Completed Lactic Acid Stat Lab 08/05/23 18:57 Completed PT INR [PROTIME WITH INR] Stat Lab 08/05/23 18:35 Completed TROPONIN Stat Lab 08/05/23 18:35 Completed UA W/RFX UR CULTURE Stat Lab 08/05/23 20:54 Completed Medication Summary Discontinued Medications Generic Name Dose Route Start Last Admin Trade Name Freq PRN Reason Stop Dose Admin Hydrocodone Bitart/Acetaminophen 2 tab 08/05/23 22:20 08/05/23 22:23 Hydrocodone/Apap 5/325 1 Tab Tablet PO 08/05/23 22:21 2 tab SENT HOME W/ PATIENT ONE Administration Sodium Chloride 500 mls @ 500 mls/hr 08/05/23 18:30 08/05/23 19:42 Sodium Chloride 0.9% 500 Ml IV 08/05/23 19:29 Infused .Q1H ONE Infusion Sodium Chloride Confirm 08/05/23 18:41 Sodium Chloride 0.9% 500 Ml Administered 08/05/23 18:42 Dose 500 mls @ ud IV .STK-MED ONE Morphine Sulfate 4 mg 08/05/23 18:26 08/05/23 18:43 Morphine Sulfate 4 Mg/Ml Injection IV 08/05/23 18:27 4 mg STAT ONE Administration Morphine Sulfate Confirm 08/05/23 18:41 Morphine Sulfate 4 Mg/Ml Injection Administered 08/05/23 18:42 Dose 4 mg .ROUTE .STK-MED ONE Morphine Sulfate Confirm 08/05/23 19:54 Morphine Sulfate 4 Mg/Ml Injection Administered 08/05/23 19:55 Dose 4 mg .ROUTE .STK-MED ONE Morphine Sulfate 4 mg 08/05/23 19:55 08/05/23 20:07 Morphine Sulfate 4 Mg/Ml Injection IV 08/05/23 19:56 4 mg STAT ONE Administration Morphine Sulfate 4 mg 08/05/23 21:44 08/05/23 21:47 Morphine Sulfate 4 Mg/Ml Injection IV 08/05/23 21:45 4 mg STAT ONE Administration Morphine Sulfate Confirm 08/05/23 21:47 Morphine Sulfate 4 Mg/Ml Injection Administered 08/05/23 21:48 Dose 4 mg .ROUTE .STK-MED ONE Ondansetron HCl 4 mg 08/05/23 18:26 08/05/23 18:43 Ondansetron Hcl 4 Mg/2 Ml Vial IV 08/05/23 18:27 4 mg STAT ONE Administration Ondansetron HCl Confirm 08/05/23 18:41 Ondansetron Hcl 4 Mg/2 Ml Vial Administered 08/05/23 18:42 Dose 4 mg .ROUTE .STK-MED ONE Lab/Rad Data: Laboratory Result Diagrams 08/05/23 18:35 08/05/23 18:35 Laboratory Results 08/05/23 08/05/23 08/05/23 Range/Units 20:54 18:57 18:35 WBC (4.0-10.5) x10^3/uL RBC (4.1-5.6) x10^6/uL Hgb (12.5-18.0) g/dL Hct (42-50) % MCV (78-100) fL MCH (26-32) pg MCHC (32-36) g/dL RDW (11.5-14.0) % Plt Count (150-450) x10^3/uL MPV (7.5-11.0) fL Gran % (36.0-66.0) % Immature Gran % (Auto) (0.00-0.4) % Nucleat RBC Rel Count (0.00-0.1) % Eos # (Auto) (0-0.5) x10^3/uL Immature Gran # (Auto) (0.00-0.03) x10^3u/L Absolute Lymphs (auto) (1.0-4.6) x10^3/uL Absolute Monos (auto) (0.0-1.3) x10^3/uL Absolute Nucleated RBC (0.00-0.01) x10^3u/L Lymphocytes % (24.0-44.0) % Monocytes % (0.0-12.0) % Eosinophils % (0.00-5.0) % Basophils % (0.0-0.4) % Absolute Granulocytes (1.4-6.9) x10^3/uL Basophils # (0-0.4) x10^3/uL PT (9.4-12.5) SECONDS INR (0.8-3.0) Sodium (135-145) mmol/L Potassium (3.5-5.1) mmol/L Chloride (98-107) mmol/L Carbon Dioxide (22-30) mmol/L Anion Gap (5-15) MEQ/L BUN (9-20) mg/dL Creatinine (0.66-1.25) mg/dL Estimated GFR ML/MIN Glucose (74-106) mg/dL Lactic Acid 0.9 (0.4-2.0) Calcium (8.4-10.2) mg/dL Total Bilirubin (0.2-1.3) mg/dL AST (17-59) U/L ALT (0-50) U/L Alkaline Phosphatase (38-126) U/L Troponin I < 0.012 (0.000-0.033) ng/mL Serum Total Protein (6.3-8.2) g/dL Albumin (3.5-5.0) g/dL Urine Color Yellow (Yellow) Urine Appearance Clear (Clear) Urine pH 7.0 (4.6-8.0) Ur Specific [place] >=1.030 A (1.005-1.030) Urine Protein Negative (Negative) Urine Glucose (UA) Negative (Negative) mg/dL Urine Ketones Negative (Negative) Urine Blood Negative (Negative) Urine Nitrite Negative (Negative) Urine Bilirubin Negative (Negative) Urine Urobilinogen 0.2 (0.2) mg/dL Ur Leukocyte Esterase Negative (Negative) U Hyaline Cast (Auto) NONE SEEN (0-2) /LPF Urine Microscopic RBC 0-2 (0-5) /HPF Urine Microscopic WBC 0-2 (0-5) /HPF Ur Epithelial Cells None Seen (None Seen) /HPF Urine Bacteria None Seen (None Seen) /HPF Urine Culture Reflexed NO (NO) 08/05/23 08/05/23 08/05/23 Range/Units 18:35 18:35 18:35 WBC 7.7 (4.0-10.5) x10^3/uL RBC 3.67 L (4.1-5.6) x10^6/uL Hgb 9.9 L (12.5-18.0) g/dL Hct 31.2 L (42-50) % MCV 85.0 (78-100) fL MCH 27.0 (26-32) pg MCHC 31.7 L (32-36) g/dL RDW 16.6 H (11.5-14.0) % Plt Count 232 (150-450) x10^3/uL MPV 10.2 (7.5-11.0) fL Gran % 61.3 (36.0-66.0) % Immature Gran % (Auto) 0.3 (0.00-0.4) % Nucleat RBC Rel Count 0.0 (0.00-0.1) % Eos # (Auto) 0.10 (0-0.5) x10^3/uL Immature Gran # (Auto) 0.02 (0.00-0.03) x10^3u/L Absolute Lymphs (auto) 2.03 (1.0-4.6) x10^3/uL Absolute Monos (auto) 0.81 (0.0-1.3) x10^3/uL Absolute Nucleated RBC 0.00 (0.00-0.01) x10^3u/L Lymphocytes % 26.3 (24.0-44.0) % Monocytes % 10.5 (0.0-12.0) % Eosinophils % 1.3 (0.00-5.0) % Basophils % 0.3 (0.0-0.4) % Absolute Granulocytes 4.75 (1.4-6.9) x10^3/uL Basophils # 0.02 (0-0.4) x10^3/uL PT 24.2 H (9.4-12.5) SECONDS INR 2.35 (0.8-3.0) Sodium 139 (135-145) mmol/L Potassium 3.8 (3.5-5.1) mmol/L Chloride 109 H (98-107) mmol/L Carbon Dioxide 27 (22-30) mmol/L Anion Gap 5.9 (5-15) MEQ/L BUN 21 H (9-20) mg/dL Creatinine 0.71 (0.66-1.25) mg/dL Estimated GFR 96.9 ML/MIN Glucose 109 H (74-106) mg/dL Lactic Acid (0.4-2.0) Calcium 8.5 (8.4-10.2) mg/dL Total Bilirubin 0.50 (0.2-1.3) mg/dL AST 19 (17-59) U/L ALT 16 (0-50) U/L Alkaline Phosphatase 56 (38-126) U/L Troponin I (0.000-0.033) ng/mL Serum Total Protein 6.6 (6.3-8.2) g/dL Albumin 3.6 (3.5-5.0) g/dL Urine Color (Yellow) Urine Appearance (Clear) Urine pH (4.6-8.0) Ur Specific [place] (1.005-1.030) Urine Protein (Negative) Urine Glucose (UA) (Negative) mg/dL Urine Ketones (Negative) Urine Blood (Negative) Urine Nitrite (Negative) Urine Bilirubin (Negative) Urine Urobilinogen (0.2) mg/dL Ur Leukocyte Esterase (Negative) U Hyaline Cast (Auto) (0-2) /LPF Urine Microscopic RBC (0-5) /HPF Urine Microscopic WBC (0-5) /HPF Ur Epithelial Cells (None Seen) /HPF Urine Bacteria (None Seen) /HPF Urine Culture Reflexed (NO) - Progress Progress: improved, pain not gone completely, re-examined Progress Note: 08/05/23 22:19 72 years old with history of chronic pancreatitis with morphine pain pump impl ant, 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 Patient has negative neuro exam in lower extremities. Patient is given symptomatic treatment for pain with multiple doses of morphine, reevaluation pain is better but not completely resolved. Has normal white count, fairly unremarkable chemistries, no UTI. INR of 2.5. I have obtained CT abdomen pelvis with contrast and also lumbar spine with contrast which showed some element of constipation but no other abdominal finding and some deep indurative changes in the lumbar spine. No fracture or subluxation. Patient does not have any pain in the pancreatic area which means the pain pump is working but has no abscess hematoma in the epidural area. This probably lumbar strain which can be further evaluated with outpatient MRI. Patient neuro exam in lower extremities remained nonfocal. Recommended outpatient follow-up. I would give him some oral pain medications in the meanwhile to go home. Discussed signs symptoms of worsening needing return to ER which she seems understanding. Stable for disch arge. Counseled pt/family regarding: lab results, diagnosis, need for follow-up, rad results Medical Desision Making - Independent Historian Additional History obtained from: Spouse - Diagnostic Testing Diagnostic test were ordered, analyzed, and reviewed by me: Yes Radiological Interpretation: Reviewed by me, Teleradiologist Report - Risk of complications The pt has a mod risk of morbidity or mortality based on: Need for prescription drug management - Departure Departure Disposition: Home Clinical Impression: Low back pain Condition: Stable Critical Care Time: No Referrals: YOSEF WILDE [Primary Care Provider] - Follow up with PCP 1 day Instructions: Low Back Pain (DC) Additional Instructions: Call your primary care and pain management for reevaluation and may need MRI for further evaluation of back pain. Use cane/walker while on pain medications to avoid a fall. Return to ER for intractable pain, numbness tingling weakness of lower extremities/loss of bowel or bladder control or perineal numbness. Prescriptions: Hydrocodone/Acetaminophen [Hydrocodone-Acetamin 7.5-325] 1 each PO Q6HPRN PRN 3 Days #12 tablet MDD 4 PRN Reason: Pain
[2023-08-05 19:00] LABS: Absolute Neutrophil Ct (ANC) 4.75 x10^3/uL (1.4-6.9); BASOPHIL % 0.3 % (0.0-0.4); Basophil (Absolute #) 0.02 x10^3/uL (0-0.4); Eosinophil % 1.3 % (0.00-5.0); Hematocrit 31.2 % (42-50); Hemoglobin 9.9 g/dL (12.5-18.0); IMMATURE GRAN # 0.02 x10^3u/L (0.00-0.03); IMMATURE GRAN % 0.3 % (0.00-0.4); Lymphocyte (Absolute #) 2.03 x10^3/uL (1.0-4.6); Lymphocytes % 26.3 % (24.0-44.0); Mean Corpuscular Hgb Concent. 31.7 g/dL (32-36); Mean Platelet Volume 10.2 fL (7.5-11.0); Monocyte (Absolute #) 0.81 x10^3/uL (0.0-1.3); Monocytes % 10.5 % (0.0-12.0); Neutrophil % 61.3 % (36.0-66.0); Platelet Count 232 x10^3/uL (150-450); Red Blood Count 3.67 x10^6/uL (4.1-5.6); Red Cell Distribution Width 16.6 % (11.5-14.0); White Blood Count 7.7 x10^3/uL (4.0-10.5)
[2023-08-05 19:14] LABS: ALBUMIN 3.6 g/dL (3.5-5.0); ANION GAP 5.9 MEQ/L (5-15); BILIRUBIN,TOTAL 0.5 mg/dL (0.2-1.3); Calcium 8.5 mg/dL (8.4-10.2); Creatinine 1 0.71 mg/dL (0.66-1.25); EST GLOMERULAR FILTRATION RATE 96.9 ML/MIN; INR 2.35 (0.8-3.0); PROTIME 24.2 SECONDS (9.4-12.5); Potassium 3.8 mmol/L (3.5-5.1); Total Protein 6.6 g/dL (6.3-8.2)
[2023-08-05 21:17] LABS: Appearance Clear (Clear); Bacteria None Seen /HPF (None Seen); Bilirubin Negative (Negative); Blood Negative (Negative); Epithelial Cells None Seen /HPF (None Seen); Glucose, Urine Negative (Negative); Hyaline Casts NONE SEEN /LPF (0-2); Ketones Negative (Negative); Leukocyte Esterase Negative (Negative); Nitrite Negative (Negative); Protein,Urine Dip Negative (Negative); RBC 0-2 /HPF (0-5); Specific Gravity >=1.030 (1.005-1.030); Urobilinogen 0.2 mg/dL (0.2); WBC 0-2 /HPF (0-5)
[2023-08-05 21:18] LABS: ADD URINE CULTURE? NO (NO)
[2023-08-05] MEDS ORDERED: NORCO 5/325 MG ONE (22:22)
[2023-08-05] MEDS: NORCO 5/325 MG PO ONE (22:23)
[2023-08-05 22:25] VITALS: O2SAT 98
[2023-08-05 22:35] VITALS: BP 153/75; PULSE 60; RESP 16
--- NOTE | 2023-08-06 08:50 | XRAY ---
Indication: Low back pain. Multiple contiguous axial images obtained through the abdomen and pelvis using 80 cc Isovue 370 contrast. Comparison: July 10, 2021 Lung bases demonstrates dependent atelectasis. No infiltrate or effusion. Heart not enlarged. Again previous Niesen fundoplication. Left abdomen pain pump again produces beam artifact. Stomach is distended with food/fluid. Noncontrasted stomach and bowel loops appear nonobstructed. Appendix not clearly visualized. There is again mild diffuse scattered colonic fecal debris greatest in right hemicolon. New finding for tiny pneumobilia. No free fluid/air. Stable nonacute setting 7 mm left renal calculus and tiny splenic calcified granulomas. Remaining liver, gallbladder, pancreas, spleen, adrenal glands, kidneys, ureters, and bladder are unremarkable. Again mild scattered earlier calcifications. No AAA or pathologic retroperitoneal lymphadenopathy. Osseous structures intact again with osteopenia, mild/moderate degenerative changes throughout the spine, and minimal levoscoliosis. Impression: 1. Beam artifact from pain pump. 2. New tiny pneumobilia. Has there been recent biliary instrumentation/ERCP? Other potential etiologies include incompetent sphincter of Case and biliary enteric fistula. 3. Again mild diffuse fecal stasis. 4. Chronic findings including nonobstructing left renal calculus, Niesen fundoplication, arteriosclerotic disease, and chronic bony findings. Comment: Pneumobilia not reported on preliminary interpretation. Telephone report given to Dr. Heck at 0845 hrs. on August 06, 2023.
--- NOTE | 2023-08-06 08:52 | XRAY ---
Indication: Back pain. Abscess. Bleed. Multiple contiguous axial images obtained through the lumbar spine. Sagittal and coronal reformatted images obtained. Comparison: CT abdomen/pelvis July 10, 2021. Osseous structures remain demineralized. Stable minimal/mild broad-based multilevel thoracolumbar disc osteophyte complex. Again T12-L2 degenerative vacuum disc phenomena and mild bilateral L4-L5 degenerative facet arthropathy. Sagittal and coronal reformatted images again demonstrates normal lumbar lordosis with minimal levoscoliosis centered at L4 and T12-L2 disc space narrowing. No acute compression fracture or subluxation. CT abdomen/pelvis reported separately. Impression: Again chronic findings including osteopenia, multilevel degenerative disc disease, and minimal levoscoliosis. No new/acute findings.
== END 2023-08-05 22:35 | disposition home or self-care (01) ==
LOC: ED 17:54
DX: M54.50 Low back pain, unspecified (principal); Z79.01 Long term (current) use of anticoagulants; Z79.02 Long term (current) use of antithrombotics/antiplatelets; Z79.891 Long term (current) use of opiate analgesic; Z79.52 Long term (current) use of systemic steroids; Z79.899 Other long term (current) drug therapy
CPT/HCPCS: 36000; 36415; 72131; 74177; 76376; 80053; 81001; 83605; 84484; 85025; 85610; 87040; 96374; 96375; 96376; 99284; J2270; J2405; A9270-GY